=== PATIENT | female | born 1975 | race Caucasian/White ===

== ENCOUNTER → 2016-09-04 | Outpatient (CLI) | payer BC ==
[~2016-09-04] MED LIST: ESTR0.3T PO; IBUP200C14 PO
--- NOTE | 2016-09-04 16:56 | MAMMOGRAPHY REPORT ---
BILATERAL DIGITAL DIAGNOSTIC MAMMOGRAM TOMOSYNTHESIS WITH CAD AND TARGETED BILATERAL ULTRASOUND: 08/18 CLINICAL HISTORY: 41-year-old woman with a family history of breast cancer = mother in her 30s and m aternal grandmother in her 60s presents with palpable lumps in each breast. She has a history of pr evious bilateral benign surgical excisional biopsies in the breasts. TECHNIQUE: Bilateral breast tomosynthesis in addition to standard 2D mammography was performed. Curr ent study was also evaluated with a Computer Aided Detection (CAD) system. COMPARISON: Comparison is made to exams dated: 04/24/2007 and 04/24/2007. BREAST COMPOSITION: There are scattered areas of fibroglandular density in both breasts. FINDINGS: No suspicious mass, architectural distortion or cluster of microcalcifications is seen bi laterally. Targeted ultrasound was performed throughout the right breast and left breast with particular attent ion to the areas of pain and lumps pointed out by the patient. The patient reports a broad area of tenderness and lumps in the lateral and superior right breast and throughout the superior left breas t. There is a bilobed nearly anechoic cystic appearing mass in the 10:00 right breast, 5 cm from th e nipple, measuring 3.6 x 2.1 x 2.3 mm. An oval hypoechoic solid versus cystic mass in the adjacent right 10:00 breast, 5 cm from the nipple measures 2.6 x 2.1 x 4.1 mm. A lobulated predominantly an echoic cystic appearing mass is seen in the 11:00 right breast, 4 cm from the nipple measuring 4.4 x 2.7 x 5.3 mm. The patient reported focal pain while ultrasounding over this cyst. In the 9:00 rig ht breast, 4 cm from the nipple, there is a microlobulated hypoechoic solid versus cystic, taller th an wide mass measuring 5.0 x 2.6 x 2.8 mm. This is indeterminate given the orientation and microlob ulated margins and definitive characterization with ultrasound guided core biopsy is recommended. Within the left 1:00 breast, 3 cm from the nipple, there is an oval parallel circumscribed anechoic benign cyst measuring 4.2 x 2.7 x 5.9 mm. A smaller anechoic cyst measuring 1.8 mm is identified in the retroareolar left breast. No other discrete solid or cystic mass is seen. IMPRESSION: ACR BI-RADS CATEGORY 4B: INTERMEDIATE SUSPICION FOR MALIGNANCY, TARGETED ULTRASOUND ACR BI-RADS CATEGORY 4B: INTERMEDIATE SUSPICION FOR MALIGNANCY 1. Ultrasound guided core needle biopsy is recommended for an indeterminate microlobulated hypoecho ic 5 mm mass in the 9:00 right breast. Pending pathology results, other benign appearing solid and cystic masses within the right breast can be followed in 6 months. 2. The patient reported focal pain while scanning over several cysts in the breasts, which may be c ontribute into the patient's symptoms. However, clinical correlation is also recommended. These results and recommendations were discussed with the patient at the time of the exam. She tent atively scheduled the biopsy prior to leaving our department. Approximately 10% of breast cancers are not detected with mammography. A negative mammographic repor t should not delay biopsy if a clinically suggestive mass is present. Ana Avila M.D. ay/:09/04/2016 15:37:17 Meat Boner And Slicer: Hermelinda Mays RT(R)(Wu), [facility] letter sent: Abnormal 4/5 BI-RADS Code: ACR BI-RADS Category 4B: Intermediate Suspicion For Malignancy Ultrasound BI-RADS: AC R BI-RADS Category 4B: Intermediate Suspicion For Malignancy
== END | disposition home or self-care (01) ==
LOC: C.MAMM 13:20
PROVIDERS: ATTEND Obstetrics & Gynecology
DX: N63 Unspecified lump in breast (principal); N64.4 Mastodynia

== ENCOUNTER → 2016-09-13 | Outpatient (CLI) | payer BC ==
--- NOTE | 2016-09-13 11:37 | Discharge Instructions ---
Discharge Instructions Procedure Procedure Date: Sep 13, 2016. Reason for visit: Right Mass. Discharge Discharge Date: Sep 13, 2016. Discharge Diagnosis: status post breast biopsy Instructions Activity Recommendations: Additional Limitations (see below) Return to School/Work: no limitations Recommended Home Diet: No Limitations Provider Instructions: ACTIVITY RECOMMENDATIONS: * No lifting, pushing, pulling or exercising the affected side for three days. RETURN TO SCHOOL/WORK: * You may return to work/school after the procedure, but do not perform any strenuous activities for 24 to 48 hours. MEDICATIONS: * Tylenol (two 325 mg) every four to six hours if needed for mild pain (if not allergic to Tylenol). DIET: * Resume previous diet. SPECIAL CARE INSTRUCTIONS: * Keep biopsy site dry for 24 hours. May shower after 24 hours, but do not soak (bathe) incision. * May remove Tegaderm (plastic patch) tomorrow AFTER showering. * Leave the steri-strips on for one week. Allow the steri-strips to fall off by themselves. If not off after one week, you may remove them. You may place a Bandaid crosswise over the strips, if desired. * Apply ice 10 minutes on and 10 minutes off as needed. * Wear a bra at bedtime to sleep more comfortably for 2-3 days. * Your referring physician should have the results after approximately 5 to 7 business days. * Call for unusual bleeding, fever, drainage, etc or if you have any questions call during normal business hours or after hours call Dr Aguilar, [phone]. FOLLOW UP VISIT: Follow-up with Referring Physician as scheduled. Allergies Coded Allergies: Hydrocodone (Verified Allergy, Mild, `, 02/01/16) Darion Sellers Recommendations: Call your doctor if: * Temperature above 101 degrees * Pain not relieved by pain medicine ordered * There is increased drainage or redness from any incision * You have any unanswered questions or concerns. Your Doctors Instructions noted above were prepared by provider Leisa Aguilar. Patient Signature Section: Patient Instructions Signature Page Krista Arenas Patient (or Guardian) Signature/Date: I have read and understand the instructions given to me by my caregivers. Caregiver/RN/Doctor Signature/Date: The above-named patient and/or guardian has received patient instructions on this date. + Original Patient Signature Page (only) stays with chart. Please make copy for patient.
--- NOTE | 2016-09-13 12:25 | MAMMOGRAPHY REPORT ---
THIS REPORT HAS BEEN AMENDED. ULTRASOUND GUIDED BIOPSY RIGHT BREAST: 09/13/2016 CLINICAL HISTORY: Right 9:00 breast mass. PATIENT CONSENT: The procedure, risks and benefits were discussed with the patient and informed writ ten consent was obtained. A timeout was performed immediately prior to the procedure. PROCEDURE DESCRIPTION: With ultrasound guidance, aseptic technique, and lidocaine as the local anest hetic (1% lidocaine to anesthetize the skin and 1% lidocaine with epinephrine to anesthetize the james per tissues), the mass of concern in the right 9:00 breast was sampled 3 times with a 14-gauge Achie ve biopsy needle. Immediately thereafter, with ultrasound guidance, aseptic technique, and lidocai ne as the local anesthetic, a metallic localizer clip was placed at the biopsy site. Direct pressur e was applied to the site immediately post procedure and hemostasis was achieved. Postprocedure uni lateral mammograms were performed to confirm placement of the clip in the expected location of the b reast mass. The patient tolerated the procedure without complication. She was given wound care inst ructions. The specimens were sent to pathology for analysis. COMPARISON: Comparison is made to exams dated: 09/04/2016 ultrasound and 09/04/2016 mammogram - [facility]. IMPRESSION: ULTRASOUND GUIDED BIOPSY Ultrasound-guided core needle biopsy of the right 9:00 breast mass, with clip placement. The patien t will receive pathology results from her referring physician. Pending benign pathology results, ot her benign-appearing masses in the right breast can be followed in 6 months. Leisa Aguilar M.D. ah/:09/13/2016 11:43:24 Photo Intern: Geno RANGEL)(Wu), [facility] AMENDMENT: 09/18/2016 Leisa Aguilar M.D. The pathology from ultrasound-guided biopsy of the right 9 o'clock breast mass was reviewed on 017. The pathology shows fibrocystic change and mild nonspecific chronic inflammation and stromal m yxoid change, which is concordant with the imaging appearance. Recommend follow-up diagnostic mammo grams and ultrasound of the right breast in 6 months to reevaluate the other right breast masses.
--- NOTE | 2016-09-13 12:26 | MAMMOGRAPHY REPORT ---
UNILATERAL RIGHT DIGITAL DIAGNOSTIC MAMMOGRAM: 09/13/2016 CLINICAL HISTORY: Status post ultrasound-guided biopsy of the right 9:00 breast mass. TECHNIQUE: Postprocedural right CC and ML views were obtained. COMPARISON: Comparison is made to exams dated: 09/04/2016 ultrasound and 09/04/2016 mammogram - [facility]. BREAST COMPOSITION: There are scattered areas of fibroglandular density in the right breast. FINDINGS: A new ribbon-shaped biopsy marker clip is seen in the expected location of the biopsied r ight 9:00 breast mass. No significant postbiopsy hematoma is seen. IMPRESSION: POST PROCEDURE IMAGING FOR MARKER PLACEMENT New biopsy marker clip status post ultrasound guided biopsy of the right 9:00 breast mass. Patholog y results are pending. Approximately 10% of breast cancers are not detected with mammography. A negative mammographic repor t should not delay biopsy if a clinically suggestive mass is present. Leisa Aguilar M.D. ah/:09/13/2016 11:49:20 Fitter Placer: Geno Barrera RT(R)(M), [facility] BI-RADS Code: Post Procedure Imaging For Marker Placement
== END | disposition home or self-care (01) ==
LOC: C.MAMM 10:40
PROVIDERS: ATTEND Obstetrics & Gynecology
DX: N63 Unspecified lump in breast (principal)

== ENCOUNTER 2017-02-17 07:11 | Emergency (ER) | payer BC, OTHER ==
[~2017-02-17] VITALS: Ht 154.9 cm; Wt 62.4 kg
[2017-02-17 07:15] VITALS: TEMP 36.7; Ht 154.9 cm; Wt 62.4 kg
[2017-02-17] MEDS ORDERED: IBUPROFEN 600 MG TAB PO STA (07:30)
--- NOTE | 2017-02-17 07:47 | DIAGNOSTIC IMAGING REPORT ---
LEFT KNEE 3 VIEWS CLINICAL HISTORY: LEFT WITH SUNRISE, TWISTING INJURY trauma. Pain. COMPARISON: None. DISCUSSION: The bones and joint spaces appear intact. There is no evidence of fracture, dislocation or bony disease. There is no evidence for soft tissue swelling. IMPRESSION: Negative study. Electronically signed by: Lv Estrada M.D. 02/17/2017 7:46 AM Dictated Date/Time: 02/17/2017 7:45 AM
--- NOTE | 2017-02-17 08:16 | EMERGENCY ROOM VISIT NOTE ---
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 She states that she was pushing a mop, when her left knee slipped, and she twisted. She complains primarily of pain and swelling in the popliteal aspect of the knee. She states the injury occurred about an hour ago. Initially she was able to walk and bear weight, but then sat for a short period of time, and found she had difficulty getting up and bearing weight after being seated. She did not take any medication nor applied any ice to the knee. There is no prior history of injuries to this knee. She was sent here by her employer. She rates her pain a 4/10. REVIEW OF SYSTEMS: Review of systems as per HPI. All other systems reviewed were negative. At least 6 systems reviewed. PMH: Electronic medical records are reviewed and summarized as above/below. See Problem List. SOCIAL HISTORY: Patient lives at home with her boyfriend. Positive tobacco and alcohol use. PHYSICAL EXAM: Vital Signs: Reviewed Nurse's notes. MENTAL STATUS: Well- appearing 41-year-old white female who is awake and alert and in no acute distress. KNEE: Examination of the left knee show the skin to be intact, no erythema, ecchymosis or outward signs of trauma noted. She has some fullness in the popliteal space, and slight joint effusion is palpable. There is no peripatellar tenderness or crepitus. She is tenderness globally over the knee, both over the medial and the lateral joint line. No pain over the patellar ligament on the quadriceps tendon. She has discomfort with range of motion, she can extend fully and flex to roughly 90. There is no gross ligamentous instability to both varus and valgus at 0 or 30, and to anterior drawer and Jacqueline's. 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 EMERGENCY DEPARTMENT COURSE: Ice pack was applied, patient was medicated with ibuprofen. X-rays of the right knee were obtained and negative for acute bony abnormality. She was wrapped with an Timo wrap, fitted with a knee immobilizer and issued crutches. Possibility of a ligamentous or meniscal injury was discussed with the patient, and she was advised that she would require further care and evaluation either with occupational health or with orthopedics as arranged by her employer. She rated her pain a 5/10 at discharge. Medication reconciliation: I attest that I have personally reviewed the patient' s current medication list. Blood pressure screening : Patient was found to have normal blood pressure on screening and does not require follow-up. LEFT KNEE 3 VIEWS CLINICAL HISTORY: LEFT WITH SUNRISE, TWISTING INJURY trauma. Pain. COMPARISON: None. DISCUSSION: The bones and joint spaces appear intact. There is no evidence of fracture, dislocation or bony disease. There is no evidence for soft tissue swelling. IMPRESSION: Negative study. Problem List Surgical Problems: (1) History of appendectomy Status: Resolved (2) History of hysterectomy Status: Resolved Current/Historical Medications Scheduled Estrogens, Conjugated (Premarin), MG PO DAILY Allergies Coded Allergies: Hydrocodone (Verified Allergy, Mild, `, 02/17/17) Vital Signs Date Time Temp Pulse Resp B/P (MAP) Pulse Ox O2 Delivery O2 Flow Rate FiO2 02/17/17 08:24 92 124/78 97 02/17/17 07:15 36.7 104 18 120/75 98 Room Air Medications Administered Medications (Trade) Dose Ordered Sig/Mary Route Start Time Stop Time Status Last Admin Dose Admin Ibuprofen (Motrin Tab) 600 mg NOW STAT PO 02/17/17 07:30 02/17/17 07:31 DC 02/17/17 07:35 600 MG Departure Information Impression Primary Impression: Left knee injury Additional Impression: Work related injury Referrals No Doctor, Assigned (PCP) Patient Instructions [facility] Additional Instructions Ibuprofen(Motrin, Advil) may be used for fever or pain. Use 600mg every six hours as needed. Take with food. Avoid using more than 2400mg in a 24 hour period. Do not use 2400mg per day for more than three consecutive days without physician direction. Prolonged inappropriate use can lead to stomach upset or ulcers. This medication can be taken if you need to drive, work, or perform activities which may be dangerous when taking narcotic pain medication. (AND/OR) Acetaminophen(Tylenol) may be used for fever or pain. Use 1000mg every six hours as needed. Avoid using more than 3000mg in a 24 hour period. This medication can be taken if you need to drive, work, or perform activities which may be dangerous when taking narcotic pain medication. Ice compresses for 20 minutes at a time four times daily for 2-3 days. Use the knee immobilizer and crutches as instructed. Rest and elevate your injury. Continue current medications. Return to the ER immediately for any numbness, tingling, severe pain, extreme swelling in the extremity or as needed. Follow up with [facility] or orthopedics as arranged by your employer. Problem Qualifiers Primary Impression: Left knee injury Encounter type: initial encounter Qualified Codes: S89.92XA - Unspecified injury of left lower leg, initial encounter
[2017-02-17 08:24] VITALS: BP 124/78; PULSE 92; O2SAT 97
== END 2017-02-17 08:25 | disposition home or self-care (01) ==
LOC: C.EDB 07:12
DX: S89.92XA Unspecified injury of left lower leg, initial encounter (principal); X50.9XXA Other and unspecified overexertion or strenuous movements or postures, initial encounter; F17.200 Nicotine dependence, unspecified, uncomplicated; Y99.0 Civilian activity done for income or pay

== ENCOUNTER → 2017-03-14 | Outpatient (CLI) | payer BC ==
[~2017-03-14] MED LIST changes: -IBUP200C14 PO
--- NOTE | 2017-03-14 12:57 | MAMMOGRAPHY REPORT ---
UNILATERAL RIGHT DIGITAL DIAGNOSTIC MAMMOGRAM TOMOSYNTHESIS WITH CAD AND TARGETED RIGHT ULTRASOUND: CLINICAL HISTORY: Recent ultrasound-guided core needle biopsy of a right 9:00 breast mass August, which yielded benign pathology including fibrocystic changes. The patient presents for short inte rval follow-up of other right breast masses seen on ultrasound. TECHNIQUE: Breast tomosynthesis in addition to standard 2D mammography was performed. Current study was also evaluated with a Computer Aided Detection (CAD) system. Right CC and MLO 2-D and tomosynthe sis images were obtained. COMPARISON: Comparison is made to exams dated: 09/13/2016 mammogram, 09/13/2016 ultrasound biopsy, 08/18 ultrasound, 09/04/2016 mammogram - [facility], 04/24/2007, and 04/24/2007. BREAST COMPOSITION: The tissue of the right breast is heterogeneously dense, which may obscure small masses. FINDINGS: There has been no significant interval change mammographically compared to prior exams. T here are no suspicious masses, calcifications, or areas of architectural distortion noted in the righ t breast. A biopsy marker clip is again noted in the right upper outer quadrant from benign ultrasou nd-guided biopsy. Targeted ultrasound was performed of the areas of the previously seen right breast masses. In the ri ght breast at 10:00, 5 cm from the nipple again noted is a round circumscribed anechoic mass which me asures 2 x 2 mm, not significantly changed compared to the August 2016 exam and consistent with a be nign cyst. Adjacent to this is an oval nearly anechoic circumscribed 4 x 3 x 2 mm mass, also unchang ed and consistent with a benign cyst. In the right breast at 11:00, 4 cm from the nipple, there is a n anechoic circumscribed mass with a thin internal septation measuring 5 x 3 x 3 mm, also unchanged a nd consistent with a benign cyst. A biopsy marker clip from benign ultrasound guided biopsy is noted in the right breast at 9:00, 4 cm from the nipple. The biopsied mass is stable to less prominent af ter biopsy, and yielded benign pathology. No suspicious masses are evident. IMPRESSION: ACR BI-RADS CATEGORY 2: BENIGN, TARGETED ULTRASOUND ACR BI-RADS CATEGORY 2: BENIGN Small masses in the right 9 to 11:00 breast on ultrasound are stable compared to the August 2016 exa m, and are benign and compatible with cysts. There is no mammographic or targeted sonographic eviden ce of malignancy. Return to annual mammogram screening schedule is recommended, due August 2017. Th e patient has been verbally notified of the results. Approximately 10% of breast cancers are not detected with mammography. A negative mammographic report should not delay biopsy if a clinically suggestive mass is present. Leisa Aguilar M.D. ah/:03/14/2017 10:36:48 Chucking Machine Set Up Operator: Shilo Cotto RT(R)(M), [facility] letter sent: Normal 1/2 BI-RADS Code: ACR BI-RADS Category 2: Benign Ultrasound BI-RADS: ACR BI-RADS Category 2: Benign
== END | disposition home or self-care (01) ==
LOC: C.MAMM 09:40
PROVIDERS: ATTEND Obstetrics & Gynecology
DX: Z09 Encounter for follow-up examination after completed treatment for conditions other than malignant neoplasm (principal); N63 Unspecified lump in breast

== ENCOUNTER 2023-11-12 22:11 | Inpatient (IN) ==
--- NOTE | 2023-11-12 22:30 | Emergency Department Note ---
History of Present Illness General Chief complaint: Flank Pain Stated complaint: SEVERE RT FLANK/BACK PAIN Time Seen by Provider: 11/12/23 22:22 History of Present Illness Maximum Pain Intensity: 10 This 48-year-old female with a history of appendectomy presents the ER complaining of right flank right upper abdominal pain for the past day. Nothing makes it better or worse. No rash. Patient denies chest pain, dyspnea, fever, chills, flulike illness, trauma to the area. Home Medications Medication Instructions Recorded Confirmed Type ibuprofen 200 mg tablet (Advil) 400 mg PO QID PRN Pain 10/27/18 03/18/23 History klxtnezk-[id number]-sqhw 8 mg-folic 2 tab PO HS 10/27/18 03/18/23 History ac 400 mcg-vit K 10 mcg chew tablet (Centrum Chewables) hydroxyzine HCl 10 mg tablet 10 mg PO Q6H PRN Anxiety 03/10/23 03/18/23 History nicotine 21 mg/24 hr daily 1 patch transdermal DAILY 03/10/23 03/18/23 History transdermal patch pantoprazole 40 mg tablet,delayed 40 mg PO QAM 03/10/23 03/18/23 History release oxycodone-acetaminophen 5 mg-325 1 tab PO Q6H PRN pain #14 tabs 03/18/23 Rx mg tablet (Percocet) Allergies Allergy/AdvReac Type Severity Reaction Status Date / Time hydrocodone Allergy Mild ITCHING Verified 03/18/23 08:56 Past Med/Surg History Medical History GERD (gastroesophageal reflux disease) Hyperlipidemia Endometriosis Anxiety Surgical History H/O total hysterectomy H/O oophorectomy S/P laparoscopy excis uterine surg endometriotic tissue posterior S/P laparoscopy gynecologic laparoscopy with adhesiolysis H/O colonoscopy History of cryosurgery cervix H/O breast biopsy S/P appendectomy Family History Mother Breast cancer, Onset Age: 32 Renal failure Grandmother (Maternal) Breast cancer, Onset Age: 60 Other Coronary heart disease Hypertension No family history of adverse response to anesthesia Denies family history of Ovarian cancer Colorectal cancer Social History Smoking Status: Never smoker Cigarettes Per Day: currently in process of quitting - using nicotine patch; Second Hand Exposure: No; Do You Dip or Chew Tobacco: No; Hx Alcohol Use: Yes Hx Substance Use: No Preferred Language: Citizen Of [place] Communication Ability: Effective Sports Internship Required: No Beliefs That Will Affect Care: None marital status: Single Current Living Situation: Family and Significant Other current occupational status: employed Feels Safe at Home: Yes Assistive Devices: Contacts and Glasses Review of Systems A total of 10 systems reviewed and were otherwise negative Physical Exam Vital Signs Vital Signs - 24 hr 11/12/23 22:15 11/12/23 23:33 11/12/23 23:34 Temperature 36.2 C L Temperature Source Temporal Artery Scan Pulse Rate 105 H 78 81 Pulse Rate from SpO2 Sensor Respiratory Rate 18 19 Respiratory Effort / Characteristics Non-Labored Spontaneous Respiratory Depth Normal Respiratory Pattern Regular Blood Pressure 143/66 H Blood Pressure Mean 91 Blood Pressure Position Sitting Pulse Oximetry 96 93 Oxygen Delivery Method Room Air Sepsis Recent Fever Within 48 Hours No Sepsis New/Unexplained Change in Mental Status N/A Sepsis Action Taken by Nursing No Action Required 11/13/23 00:00 11/13/23 00:56 11/13/23 01:00 Temperature Temperature Source Pulse Rate 71 80 Pulse Rate from SpO2 Sensor 83 Respiratory Rate 18 24 Respiratory Effort / Characteristics Respiratory Depth Respiratory Pattern Blood Pressure 122/61 118/71 Blood Pressure Mean 81 86 Blood Pressure Position Pulse Oximetry 99 96 94 Oxygen Delivery Method Sepsis Recent Fever Within 48 Hours Sepsis New/Unexplained Change in Mental Status Sepsis Action Taken by Nursing 11/13/23 01:00 Temperature Temperature Source Pulse Rate Pulse Rate from SpO2 Sensor Respiratory Rate Respiratory Effort / Characteristics Respiratory Depth Respiratory Pattern Blood Pressure 118/71 Blood Pressure Mean 81 Blood Pressure Position Pulse Oximetry Oxygen Delivery Method Sepsis Recent Fever Within 48 Hours Sepsis New/Unexplained Change in Mental Status Sepsis Action Taken by Nursing VITALS: Vitals are noted on the nurse's note and reviewed by myself. Vital signs stable. GENERAL: Pleasant female, in no acute distress, nondiaphoretic, well-developed well-nourished. SKIN: Capillary reflex less than 2 seconds. HEENT: Normocephalic. PERRLA. EOMI. Nares patent. Mucous membranes moist. Neck is supple without nuchal rigidity. HEART: Regular rate and rhythm LUNGS: Clear to auscultation bilaterally without wheezes, rales or rhonchi. No retractions or accessory muscle use. ABDOMEN: Positive bowel sounds x 4. Normal tympanic percussion. Soft, tender right upper quadrant, right CVA tenderness, without masses or organomegaly. No guarding or rebound tenderness. no left CVA tenderness MUSCULOSKELETAL: No gross musculoskeletal defects. NEURO: Patient was alert and oriented to person place and time. No focal neurological deficits. Course Administered Medications Fentanyl Citrate (Fentanyl Citrate Pf 100 Mcg/2 Ml Vial) 50 mcg IV Q15M PRN PRN Reason: Pain Stop: 11/26/23 22:26 Last Admin: 11/13/23 00:58 Dose: 50 mcg Documented By: Admin: 11/13/23 00:01 Dose: 50 mcg Documented By: Admin: 11/12/23 22:51 Dose: 50 mcg Documented By: OCTAVIO Discontinued Medications Sodium Chloride (Nss) 1,000 mls @ 999 mls/hr IV .Q1H1M STA Stop: 11/12/23 23:27 Last Infusion: 11/13/23 00:05 Dose: Infused Documented By: Admin: 11/12/23 22:51 Dose: 999 mls/hr Documented By: OCTAVIO Ondansetron HCl (Ondansetron Inj 2 Mg/Ml 2 Ml Vial) 4 mg IV NOW STA Stop: 11/12/23 22:28 Last Admin: 11/12/23 22:51 Dose: 4 mg Documented By: OCTAVIO Medical Decision Making Medical Records Attestation: I reviewed the patient's medical records. Home Medications Current Medication List: was personally reviewed by me Laboratory Data Attestation: I reviewed the patient's lab results. 11/12/23 22:35 11/12/23 22:35 Lab Results 11/12/23 Range/Units 22:35 WBC 9.33 (4.8-10.8) K/ul RBC 4.75 (4.20-5.40) M/uL Hgb 14.1 (12.0-16.0) g/dl Hct 41.4 (37.0-47.0) % MCV 87.2 (80.0-100.0) fL MCH 29.7 (25.0-34.0) pg MCHC 34.1 (32.0-36.0) g/dL RDW Std Deviation 39.9 (36.4-46.3) fL RDW Coeff of Brianna 12.4 (11.5-14.5) % Plt Count 225 (130-400) K/uL MPV 11.5 (9.4-12.4) fL Immature Gran % (Auto) 0.2 % Neut % (Auto) 59.7 % Lymph % (Auto) 27.4 % Daniels % (Auto) 9.6 % Eos % (Auto) 2.3 % Baso % (Auto) 0.8 % Neut # (Auto) 5.57 (1.40-6.50) K/uL Lymph # (Auto) 2.56 (1.20-3.40) K/uL Daniels # (Auto) 0.90 H (0.11-0.59) K/uL Eos # (Auto) 0.21 (0.00-0.50) K/uL Baso # (Auto) 0.07 (0.00-0.20) K/uL Immature Gran # (Auto) 0.02 (0.01-0.20) K/uL Sodium 138 (136-145) mmol/L Potassium 3.9 (3.5-5.1) mmol/L Chloride 106 (98-107) mmol/L Carbon Dioxide 27 (21-32) mmol/L Anion Gap 5 (3-11) BUN 15 (6-23) mg/dl Creatinine 0.99 (0.6-1.2) mg/dl Est Cr Clr Drug Dosing 63.4 ml/min Est GFR ( Amer) 79.2 ml/min Est GFR (Non-Af Amer) 68.3 ml/min BUN/Creatinine Ratio 15.2 (10-20) Glucose 99 (70-99(Fasting)) mg/dl Calcium 9.5 (8.6-10.3) mg/dl Total Bilirubin 0.4 (0.2-1.0) mg/dl AST 17 (13-39) U/L ALT 13 (7-52) U/L Alkaline Phosphatase 67 (34-104) U/L Total Protein 6.7 (6.0-8.3) gm/dl Albumin 4.2 (3.4-5.0) gm/dl Globulin 2.5 (2.5-4.0) gm/dl Albumin/Globulin Ratio 1.7 (0.9-2) Lipase 49 (11-82) U/L HCG, Qual Negative (Negative) Urine Color Yellow Urine Appearance Cloudy A (Clear) Urine pH 6.0 (4.5-7.5) Ur Specific [place] 1.010 (1.000-1.030) Urine Protein Negative (Negative) Urine Glucose (UA) Negative (Negative) Urine Ketones Negative (Negative) Urine Blood Negative (Negative) Urine Nitrite Negative (Negative) Urine Bilirubin Negative (Negative) Urine Urobilinogen Negative (Negative) Ur Leukocyte Esterase Negative (Negative) Urine WBC (Auto) 1-5 (0-5) /hpf Urine RBC (Auto) 0-4 (0-4) /hpf U Hyaline Cast (Auto) 0 (0-5) /lpf U Epithel Cells (Auto) 20-30 H (0-5) /lpf Urine Bacteria (Auto) Negative (Negative) Imaging Data Attestation: I personally reviewed and interpreted this imaging study as follows: Radiologist's Impression: Abdomen/Pelvis CT 11/12/23 22:27 Exam(s): CT ABDOMEN + PELVIS Without Contrast EXAM: CT Abdomen and Pelvis Without Intravenous Contrast CLINICAL HISTORY: Reason for exam: right flank pain. TECHNIQUE: Axial computed tomography images of the abdomen and pelvis without intravenous contrast. CTDI is 17.5 mGy and DLP is 804.42 mGy-cm. Automated exposure control was utilized for the study. A dose lowering technique was utilized adhering to the principles of ALARA. COMPARISON: No relevant prior studies available. FINDINGS: Lung bases: Unremarkable. No mass. No consolidation. ABDOMEN: Liver: Hepatic low-attenuation lesion in the right hepatic lobe measures 9 x 7 mm, too small to characterize. Gallbladder and bile ducts: Contracted gallbladder, which is limited in evaluation. No calcified stones. No ductal dilation. Pancreas: Unremarkable. No ductal dilation. Spleen: Unremarkable. No splenomegaly. Adrenals: Unremarkable. No mass. Kidneys and ureters: No hydronephrosis or nephrolithiasis. No obstructive uropathy. Note, there are phleboliths along the course of the right ureter. No hydronephrosis or nephrolithiasis. Stomach and bowel: Diverticulosis, without acute diverticulitis. No bowel obstruction. No free air. PELVIS: Appendix: No findings to suggest acute appendicitis. Bladder: Unremarkable. No stones. Reproductive: Unremarkable as visualized. ABDOMEN and PELVIS: Intraperitoneal space: See above. Bones/joints: No acute fracture. No dislocation. Soft tissues: Unremarkable. Vasculature: Unremarkable. No abdominal aortic aneurysm. Lymph nodes: Unremarkable. No enlarged lymph nodes. IMPRESSION: 1. No hydronephrosis or nephrolithiasis. No obstructive uropathy. Note, there are phleboliths along the course of the right ureter. No right-sided perinephric stranding. 2. Diverticulosis, without acute diverticulitis. No bowel obstruction. No free air. Electronically signed by: Enoc Aguilera MD 11/12/23 23:20 PM Gallbladder Ultrasound 11/12/23 22:27 Exam(s): US GALLBLADDER EXAM: US Abdomen Limited, Gallbladder CLINICAL HISTORY: Reason for exam: ruq pain. TECHNIQUE: Real-time ultrasound of the right upper quadrant with image documentation. COMPARISON: No relevant prior studies available. FINDINGS: Liver: Indeterminate right hepatic lesion measures 2.4 x 2.4 cm in dimension blood flow. Recommend nonemergent contrast-enhanced MRI correlation (hepatic mass protocol). Small hepatic cystic lesion measures 6 x 6 mm. Gallbladder: Mild wall thickening of the gallbladder. No gallstones. Common bile duct: The common bile duct measures 5 mm. No stones. No dilation. IMPRESSION: Indeterminate right hepatic lesion measures 2.4 x 2.4 cm in dimension blood flow. Recommend nonemergent contrast-enhanced MRI correlation (hepatic mass protocol). Electronically signed by: Enoc Aguilera MD 11/13/23 01:19 AM MDM Narrative Prior records/ancillary studies reviewed. Triage Nursing notes reviewed. Additional history obtained from nursing. The patient's history was concerning for abdominal pain. Differential diagnosis: Etiologies such as appendicitis, diverticulitis, PUD, biliary pathology, UTI, pancreatitis, obstruction, mesenteric ischemia, aortic pathology, infections, inflammatory bowel disease, renal colic, as well as others were entertained. Physical examination findings: As above. ER treatment provided: An order was placed for continuous cardiac monitoring. The monitor shows a rate of 60-100 with a sinus rhythm per my Independent interpretation. Fentanyl, Zofran, IV fluids were ordered On reassessment the patient felt better. Diagnostics interpreted by me: The labs Independently Interpreted by myself revealed no worrisome leukocytosis, normal LFTs Imaging studies: Ultrasound and CT as above Consultation: A consultation was placed with the hospitalist. The case was discussed and diagnostics were reviewed. The patient was evaluated in the ER for further treatment. Exam and history seem consistent with new liver lesions with ongoing upper abdominal pain. Medicine was consulted and case was discussed. She will be admitted for further evaluation and workup. Medicine will order the liver MRI. Patient is agreeable. By the evaluation outlined above emergent etiologies such as appendicitis, diverticulitis, PUD, biliary pathology, UTI, pancreatitis, obstruction, mesenteric ischemia, aortic pathology, infections, inflammatory bowel disease, renal colic, as well as others were deemed relatively unlikely. The pt informed about the findings as listed above. All questions were answered and pleased with the treatment. The chart was completed utilizing [employer] Speech voice recognition software. Grammatical errors, random word insertions, pronoun errors, and incomplete sentences are an occassional consequence of this system due to software limitations, ambient noise, and hardware issues. Any formal questions or concerns about the content, text, or information contained within the body of this dictation should be directly addressed to the physician cardiovascular physician assistant for clarification. Impression & Plan Lesion of liver, Abdominal pain Discharge Plan Visit Data Chief Complaint: Flank Pain Stated Complaint: SEVERE RT FLANK/BACK PAIN ED Provider: [facility] ED Midlevel Provider: Janice Garcia Discharge Problem: Lesion of liver, Abdominal pain Patient Disposition: Being Evaluated by Hospitalist Condition: Good Forms Stand Alone Forms: [facility] [place] Prescriptions Prescriptions: No Action ibuprofen [Advil] 200 mg Tablet 400 mg PO QID PRN (Reason: Pain) Centrum Chewables 8 mg-400 mcg- 10 mcg Tablet,Chewable 2 tab PO HS pantoprazole 40 mg Tablet,Delayed Release (Dr/Ec) 40 mg PO QAM hydroxyzine HCl 10 mg Tablet 10 mg PO Q6H PRN (Reason: Anxiety) nicotine 21 mg/24 hr Patch 24 Hour 1 patch TRANSDERMAL DAILY oxycodone-acetaminophen [Percocet] 5-325 mg tablet 1 tab PO Q6H PRN (Reason: pain) Qty: 14 0RF Referrals Referrals: PCP,NO [Primary Care Provider] -
[2023-11-12] MEDS: ONDANSETRON INJ 2 MG/ML 2 ML VIAL IV STA (22:51)
[2023-11-12] MEDS: fentaNYL citrate PF 100 MCG/2 ML VIAL IV PRN (22:51)
[2023-11-12] MEDS: SODIUM CHLORIDE 0.9% 1,000 ML IV STA (22:51)
[2023-11-12 23:01] LABS: Basophils # (auto) 0.07 K/uL (0.00-0.20); Basophils % (auto) 0.8 %; Eosinophils # (auto) 0.21 K/uL (0.00-0.50); Eosinophils % (auto) 2.3 %; Hematocrit (blood only) 41.4 % (37.0-47.0); Hemoglobin 14.1 g/dl (12.0-16.0); Immature Granulocytes # (auto) 0.02 K/uL (0.01-0.20); Immature Granulocytes % (auto) 0.2 %; Lymphocytes # (auto) 2.56 K/uL (1.20-3.40); Lymphocytes % (auto) 27.4 %; Mean Corpuscular Hemoglobin 29.7 pg (25.0-34.0); Mean Corpuscular Hgb Conc 34.1 g/dL (32.0-36.0); Mean Corpuscular Volume 87.2 fL (80.0-100.0); Mean Platelet Volume 11.5 fL (9.4-12.4); Monocytes % (auto) 9.6 %; Neutrophils # (auto) 5.57 K/uL (1.40-6.50); Neutrophils % (auto) 59.7 %; Platelet Count 225 K/uL (130-400); RDW Coefficient of Variation 12.4 % (11.5-14.5); RDW Standard Deviation 39.9 fL (36.4-46.3); Red Blood Count 4.75 M/uL (4.20-5.40); White Blood Count 9.33 K/ul (4.8-10.8)
[2023-11-12 23:02] LABS: Appearance Urine Cloudy (Clear); Bacteria Urine Automated Negative (Negative); Bilirubin Urine Negative (Negative); Blood Urine Negative (Negative); Cast Urine Automated 0 /lpf (0-5); Color Urine Yellow; Epithelial Cell Urine Auto 20-30 /lpf (0-5); Glucose Urine UA Negative (Negative); Ketones Urine Negative (Negative); Leukocyte Esterase Urine Negative (Negative); Nitrite Urine Negative (Negative); Protein Urine Negative (Negative); RBC Urine Automated 0-4 /hpf (0-4); Urobilinogen Urine Negative (Negative)
[2023-11-12 23:18] LABS: Albumin Globulin Ratio 1.7 (0.9-2); Albumin Level 4.2 gm/dl (3.4-5.0); BUN Creatinine Ratio 15.2 (10-20); Bilirubin,Total 0.4 mg/dl (0.2-1.0); Calcium 9.5 mg/dl (8.6-10.3); Creatinine Clr Calc Pharmacy 63.4 ml/min; Est GFR (African American) 79.2 ml/min; Est GFR (Non-African American) 68.3 ml/min; Globulin 2.5 gm/dl (2.5-4.0); Potassium 3.9 mmol/L (3.5-5.1); Total Protein 6.7 gm/dl (6.0-8.3)
[2023-11-12 23:20] LABS: Pregnancy Test, Serum Negative (Negative)
--- NOTE | 2023-11-12 23:22 | CT Scan Report ---
Exam(s): CT ABDOMEN + PELVIS Without Contrast EXAM: CT Abdomen and Pelvis Without Intravenous Contrast CLINICAL HISTORY: Reason for exam: right flank pain. TECHNIQUE: Axial computed tomography images of the abdomen and pelvis without intravenous contrast. CTDI is 17.5 mGy and DLP is 804.42 mGy-cm. Automated exposure control was utilized for the study. A dose lowering technique was utilized adhering to the principles of ALARA. COMPARISON: No relevant prior studies available. FINDINGS: Lung bases: Unremarkable. No mass. No consolidation. ABDOMEN: Liver: Hepatic low-attenuation lesion in the right hepatic lobe measures 9 x 7 mm, too small to characterize. Gallbladder and bile ducts: Contracted gallbladder, which is limited in evaluation. No calcified stones. No ductal dilation. Pancreas: Unremarkable. No ductal dilation. Spleen: Unremarkable. No splenomegaly. Adrenals: Unremarkable. No mass. Kidneys and ureters: No hydronephrosis or nephrolithiasis. No obstructive uropathy. Note, there are phleboliths along the course of the right ureter. No hydronephrosis or nephrolithiasis. Stomach and bowel: Diverticulosis, without acute diverticulitis. No bowel obstruction. No free air. PELVIS: Appendix: No findings to suggest acute appendicitis. Bladder: Unremarkable. No stones. Reproductive: Unremarkable as visualized. ABDOMEN and PELVIS: Intraperitoneal space: See above. Bones/joints: No acute fracture. No dislocation. Soft tissues: Unremarkable. Vasculature: Unremarkable. No abdominal aortic aneurysm. Lymph nodes: Unremarkable. No enlarged lymph nodes. IMPRESSION: 1. No hydronephrosis or nephrolithiasis. No obstructive uropathy. Note, there are phleboliths along the course of the right ureter. No right-sided perinephric stranding. 2. Diverticulosis, without acute diverticulitis. No bowel obstruction. No free air. Electronically signed by: Enoc Aguilera MD 11/12/23 23:20 PM
--- NOTE | 2023-11-13 01:19 | Ultrasound Report ---
Exam(s): US GALLBLADDER EXAM: US Abdomen Limited, Gallbladder CLINICAL HISTORY: Reason for exam: ruq pain. TECHNIQUE: Real-time ultrasound of the right upper quadrant with image documentation. COMPARISON: No relevant prior studies available. FINDINGS: Liver: Indeterminate right hepatic lesion measures 2.4 x 2.4 cm in dimension blood flow. Recommend nonemergent contrast-enhanced MRI correlation (hepatic mass protocol). Small hepatic cystic lesion measures 6 x 6 mm. Gallbladder: Mild wall thickening of the gallbladder. No gallstones. Common bile duct: The common bile duct measures 5 mm. No stones. No dilation. IMPRESSION: Indeterminate right hepatic lesion measures 2.4 x 2.4 cm in dimension blood flow. Recommend nonemergent contrast-enhanced MRI correlation (hepatic mass protocol). Electronically signed by: Enoc Aguilera MD 11/13/23 01:19 AM
[2023-11-13] MEDS: fentaNYL citrate PF 100 MCG/2 ML VIAL IV STA (01:34)
[2023-11-13] MEDS: HYDROmorphone INJ 0.5 MG/0.5 ML SYR IV PRN (04:35)
--- NOTE | 2023-11-13 05:02 | History & Physical Report ---
Date of Service November 13, 2023 Assessment & Plan (1) Abdominal pain: Plan: 48-year-old female with past med significant for allergic rhinitis, irritable bowel syndrome, history of headaches, general anxiety disorder, tobacco use disorder, depression presents with right-sided abdominal pain going on for 3 to 4 days. The pain was getting severe so she came to the ER. Has Some nausea. Denies any diarrhea or constipation. No blood in the stools ,normal mictu rition. No fevers. No chest pain or shortness of breath. No headache. No blurred visions ,no runny nose or sore throat. Hemodynamics are okay. Gallbladder ultrasound shows right hepatic lesions Abdominal pain right-sided Gallbladder ultrasound shows right hepatic lesions 2.4 x 2.[address] abdomen pelvis without contrast shows right hepatic lesion 9 x 7 mm and diverticulosis We will keep her n.p.o., IV fluids, IV Dilaudid as needed, IV Zofran as needed GI consult in a.m. for further recommendations GERD Continue Protonix DVT prophylaxis SCDs for now Disposition Medical floor Full code History of Present Illness Chief Complaint: Right-sided abdominal pain Primary Care Provider: NO PCP 48-year-old female with past med significant for allergic rhinitis, irritable bowel syndrome, history of headaches, general anxiety disorder, tobacco use disorder, depression presents with right-sided abdominal pain going on for 3 to 4 days. The pain was getting severe so she came to the ER. Has Some nausea. Denies any diarrhea or constipation. No blood in the stools ,normal micturition. No fevers. No chest pain or shortness of breath. No headache. No blurred visions ,no runny nose or sore throat. Hemodynamics are okay. Past medical history. As mentioned above Past surgical history. Bilateral breast lumpectomies. Ligation oviducts. Appendectomy. Total abdominal hysterectomy with removal of tubes Social history. Smokes 0.2 packs a day for last 17 years. Alcohol rarely. No drug use. Family history. Mother had breast cancer. Allergies Allergy/AdvReac Type Severity Reaction Status Date / Time hydrocodone Allergy Mild ITCHING Verified 03/18/23 08:56 Home Medications Medication Instructions Recorded Confirmed Type ibuprofen 200 mg tablet (Advil) 400 mg PO QID PRN Pain 10/27/18 11/13/23 History ltinezus-uqgtfucj-yqrp 8 mg-folic 2 tab PO HS 10/27/18 11/13/23 History ac 400 mcg-vit K 10 mcg chew tablet (Centrum Chewables) hydroxyzine HCl 10 mg tablet 10 mg PO Q6H PRN Anxiety 03/10/23 11/13/23 History pantoprazole 40 mg tablet,delayed 40 mg PO QAM 03/10/23 11/13/23 History release Past Med/Surg History Medical History GERD (gastroesophageal reflux disease) Hyperlipidemia Endometriosis Anxiety Surgical History H/O total hysterectomy H/O oophorectomy S/P laparoscopy excis uterine surg endometriotic tissue posterior S/P laparoscopy gynecologic laparoscopy with adhesiolysis H/O colonoscopy History of cryosurgery cervix H/O breast biopsy S/P appendectomy Family History Mother Breast cancer, Onset Age: 32 Renal failure Grandmother (Maternal) Breast cancer, Onset Age: 60 Other Coronary heart disease Hypertension No family history of adverse response to anesthesia Denies family history of Ovarian cancer Colorectal cancer Social History Smoking Status: Never smoker Cigarettes Per Day: currently in process of quitting - using nicotine patch; Second Hand Exposure: No; Do You Dip or Chew Tobacco: No; Hx Alcohol Use: Yes Hx Substance Use: No Preferred Language: Fijian Communication Ability: Effective Foreign Student Adviser Required: No Beliefs That Will Affect Care: None marital status: Single Current Living Situation: Family and Significant Other current occupational status: employed Feels Safe at Home: Yes Assistive Devices: Contacts and Glasses Review of Systems Review of Systems: All systems reviewed & are unremarkable except as noted in HPI & below Physical Exam Physical Exam: General- Not in distress Head- atraumatic Eyes- PERRL. ENT- oropharynx clear Neck- supple, no JVD. Lungs- clear to auscultation no wheezing or crackles. Heart- regular rhythm; no murmur, no gallop. Abdomen- normal bowel sounds, soft, tenderness in RUQ and guarding present, No distension seen. Extremities- no pretibial edema, no erythema Neuro- alert, oriented PERRL, no facial palsy; no dysarthria; moves extremities. Results & Data Results & Data Vital Signs (Past 12 Hours) Vital Signs Temp Pulse Resp BP Pulse Ox O2 Del Method 11/13/23 03:30 75 15 104/80 98 11/13/23 03:00 73 13 116/74 97 11/13/23 02:30 76 15 111/79 98 11/13/23 02:00 93 H 27 H 104/65 96 11/13/23 01:30 81 14 121/80 96 11/13/23 01:00 118/71 11/13/23 01:00 80 24 118/71 94 11/13/23 00:56 122/61 96 11/13/23 00:00 71 18 99 11/12/23 23:34 81 11/12/23 23:33 78 19 93 11/12/23 22:15 36.2 C L 105 H 18 143/66 H 96 Room Air Diagnostic Findings Laboratory Results WBC 9.33 K/ul (4.8-10.8) 11/12/23 22:35 RBC 4.75 M/uL (4.20-5.40) 11/12/23 22:35 Hgb 14.1 g/dl (12.0-16.0) 11/12/23 22:35 Hct 41.4 % (37.0-47.0) 11/12/23 22:35 MCV 87.2 fL (80.0-100.0) 11/12/23 22:35 MCH 29.7 pg (25.0-34.0) 11/12/23 22:35 MCHC 34.1 g/dL (32.0-36.0) 11/12/23 22:35 RDW Std Deviation 39.9 fL (36.4-46.3) 11/12/23 22:35 RDW Coeff of Brianna 12.4 % (11.5-14.5) 11/12/23 22:35 Plt Count 225 K/uL (130-400) 11/12/23 22:35 MPV 11.5 fL (9.4-12.4) 11/12/23 22:35 Immature Gran % (Auto) 0.2 % 11/12/23 22:35 Neut % (Auto) 59.7 % 11/12/23 22:35 Lymph % (Auto) 27.4 % 11/12/23 22:35 [place] % (Auto) 9.6 % 11/12/23 22:35 Eos % (Auto) 2.3 % 11/12/23 22:35 Baso % (Auto) 0.8 % 11/12/23 22:35 Neut # (Auto) 5.57 K/uL (1.40-6.50) 11/12/23 22:35 Lymph # (Auto) 2.56 K/uL (1.20-3.40) 11/12/23 22:35 [place] # (Auto) 0.90 K/uL (0.11-0.59) H 11/12/23 22:35 Eos # (Auto) 0.21 K/uL (0.00-0.50) 11/12/23 22:35 Baso # (Auto) 0.07 K/uL (0.00-0.20) 11/12/23 22:35 Immature Gran # (Auto) 0.02 K/uL (0.01-0.20) 11/12/23 22:35 Sodium 138 mmol/L (136-145) 11/12/23 22:35 Potassium 3.9 mmol/L (3.5-5.1) 11/12/23 22:35 Chloride 106 mmol/L (98-107) 11/12/23 22:35 Carbon Dioxide 27 mmol/L (21-32) 11/12/23 22:35 Anion Gap 5 (3-11) 11/12/23 22:35 BUN 15 mg/dl (6-23) 11/12/23 22:35 Creatinine 0.99 mg/dl (0.6-1.2) 11/12/23 22:35 Est Cr Clr Drug Dosing 63.4 ml/min 11/12/23 22:35 Est GFR ( Amer) 79.2 ml/min 11/12/23 22:35 Est GFR (Non-Af Amer) 68.3 ml/min 11/12/23 22:35 BUN/Creatinine Ratio 15.2 (10-20) 11/12/23 22:35 Glucose 99 mg/dl (70-99(Fasting)) 11/12/23 22:35 Calcium 9.5 mg/dl (8.6-10.3) 11/12/23 22:35 Total Bilirubin 0.4 mg/dl (0.2-1.0) 11/12/23 22:35 AST 17 U/L (13-39) 11/12/23 22:35 ALT 13 U/L (7-52) 11/12/23 22:35 Alkaline Phosphatase 67 U/L (34-104) 11/12/23 22: Total Protein 6.7 gm/dl (6.0-8.3) 11/12/23 22:35 Albumin 4.2 gm/dl (3.4-5.0) 11/12/23 22: Globulin 2.5 gm/dl (2.5-4.0) 11/12/23 22: Albumin/Globulin Ratio 1.7 (0.9-2) 11/12/23 22: Lipase 49 U/L (11-82) 11/12/23 22:35 HCG, Qual Negative (Negative) 11/12/23 22:35 Urine Color Yellow 11/12/23 22:35 Urine Appearance Cloudy (Clear) A 11/12/23 22:35 Urine pH 6.0 (4.5-7.5) 11/12/23 22:35 Ur Specific [place] 1.010 (1.000-1.030) 11/12/23 22:35 Urine Protein Negative (Negative) 11/12/23 22:35 Urine Glucose (UA) Negative (Negative) 11/12/23 22:35 Urine Ketones Negative (Negative) 11/12/23 22:35 Urine Blood Negative (Negative) 11/12/23 22:35 Urine Nitrite Negative (Negative) 11/12/23 22:35 Urine Bilirubin Negative (Negative) 11/12/23 22:35 Urine Urobilinogen Negative (Negative) 11/12/23 22:35 Ur Leukocyte Esterase Negative (Negative) 11/12/23 22:35 Urine WBC (Auto) 1-5 /hpf (0-5) 11/12/23 22:35 Urine RBC (Auto) 0-4 /hpf (0-4) 11/12/23 22:35 U Hyaline Cast (Auto) 0 /lpf (0-5) 11/12/23 22:35 U Epithel Cells (Auto) 20-30 /lpf (0-5) H 11/12/23 22:35 Urine Bacteria (Auto) Negative (Negative) 11/12/23 22:35 Impressions Abdomen/Pelvis CT 11/12/23 22:27 Exam(s): CT ABDOMEN + PELVIS Without Contrast EXAM: CT Abdomen and Pelvis Without Intravenous Contrast CLINICAL HISTORY: Reason for exam: right flank pain. TECHNIQUE: Axial computed tomography images of the abdomen and pelvis without intravenous contrast. CTDI is 17.5 mGy and DLP is 804.42 mGy-cm. Automated exposure control was utilized for the study. A dose lowering technique was utilized adhering to the principles of ALARA. COMPARISON: No relevant prior studies available. FINDINGS: Lung bases: Unremarkable. No mass. No consolidation. ABDOMEN: Liver: Hepatic low-attenuation lesion in the right hepatic lobe measures 9 x 7 mm, too small to characterize. Gallbladder and bile ducts: Contracted gallbladder, which is limited in evaluation. No calcified stones. No ductal dilation. Pancreas: Unremarkable. No ductal dilation. Spleen: Unremarkable. No splenomegaly. Adrenals: Unremarkable. No mass. Kidneys and ureters: No hydronephrosis or nephrolithiasis. No obstructive uropathy. Note, there are phleboliths along the course of the right ureter. No hydronephrosis or nephrolithiasis. Stomach and bowel: Diverticulosis, without acute diverticulitis. No bowel obstruction. No free air. PELVIS: Appendix: No findings to suggest acute appendicitis. Bladder: Unremarkable. No stones. Reproductive: Unremarkable as visualized. ABDOMEN and PELVIS: Intraperitoneal space: See above. Bones/joints: No acute fracture. No dislocation. Soft tissues: Unremarkable. Vasculature: Unremarkable. No abdominal aortic aneurysm. Lymph nodes: Unremarkable. No enlarged lymph nodes. IMPRESSION: 1. No hydronephrosis or nephrolithiasis. No obstructive uropathy. Note, there are phleboliths along the course of the right ureter. No right-sided perinephric stranding. 2. Diverticulosis, without acute diverticulitis. No bowel obstruction. No free air. Electronically signed by: Enoc Aguilera MD 11/12/23 23:20 PM Gallbladder Ultrasound 11/12/23 22:27 Exam(s): US GALLBLADDER EXAM: US Abdomen Limited, Gallbladder CLINICAL HISTORY: Reason for exam: ruq pain. TECHNIQUE: Real-time ultrasound of the right upper quadrant with image documentation. COMPARISON: No relevant prior studies available. FINDINGS: Liver: Indeterminate right hepatic lesion measures 2.4 x 2.4 cm in dimension blood flow. Recommend nonemergent contrast-enhanced MRI correlation (hepatic mass protocol). Small hepatic cystic lesion measures 6 x 6 mm. Gallbladder: Mild wall thickening of the gallbladder. No gallstones. Common bile duct: The common bile duct measures 5 mm. No stones. No dilation. IMPRESSION: Indeterminate right hepatic lesion measures 2.4 x 2.4 cm in dimension blood flow. Recommend nonemergent contrast-enhanced MRI correlation (hepatic mass protocol). Electronically signed by: Enoc Aguilera MD 11/13/23 01:19 AM Code Status & VTE Plan VTE Prophylaxis Plan VTE Prophylaxis will be ordered: Yes
[2023-11-13] MEDS: KETOROLAC TROMETHAMINE 15 MG/ML VIAL IV ONE (06:36)
[2023-11-13 10:03] LABS: Basophils # (auto) 0.07 K/uL (0.00-0.20); Basophils % (auto) 0.8 %; Eosinophils # (auto) 0.16 K/uL (0.00-0.50); Eosinophils % (auto) 1.9 %; Hematocrit (blood only) 38.9 % (37.0-47.0); Hemoglobin 13.4 g/dl (12.0-16.0); Immature Granulocytes # (auto) 0.02 K/uL (0.01-0.20); Immature Granulocytes % (auto) 0.2 %; Lymphocytes # (auto) 2.06 K/uL (1.20-3.40); Lymphocytes % (auto) 24.3 %; Mean Corpuscular Hemoglobin 29.5 pg (25.0-34.0); Mean Corpuscular Hgb Conc 34.4 g/dL (32.0-36.0); Mean Corpuscular Volume 85.5 fL (80.0-100.0); Mean Platelet Volume 11.4 fL (9.4-12.4); Monocytes # (auto) 0.98 K/uL (0.11-0.59); Monocytes % (auto) 11.5 %; Neutrophils % (auto) 61.3 %; Platelet Count 215 K/uL (130-400); RDW Coefficient of Variation 12.5 % (11.5-14.5); Red Blood Count 4.55 M/uL (4.20-5.40); White Blood Count 8.49 K/ul (4.8-10.8)
[2023-11-13 10:26] LABS: Albumin Level 3.9 gm/dl (3.4-5.0); BUN Creatinine Ratio 17.1 (10-20); Bilirubin Direct 0.1 mg/dl (0-0.2); Bilirubin,Total 0.6 mg/dl (0.2-1.0); Calcium 8.9 mg/dl (8.6-10.3); Creatinine Clr Calc Pharmacy 76.5 ml/min; Est GFR (African American) 99.5 ml/min; Est GFR (Non-African American) 85.8 ml/min; Total Protein 6.4 gm/dl (6.0-8.3)
[2023-11-13] MEDS: PANTOprazole 40 MG TAB PO SCH (10:48)
[2023-11-13] MEDS: hydrOXYzine HCl 10 MG TAB PO PRN (10:48)
[2023-11-13] MEDS: D5W AND NSS 1,000 ML IV SCH (10:52)
--- NOTE | 2023-11-13 12:07 | Gastrointestinal Consultation ---
Date of Consultation November 13, 2023 Assessment & Plan (1) RUQ abdominal pain: Plan EGD this afternoon by Dr. Flores. MRI liver. Keep NPO. Further recommendations to follow these procedures. Supervising Physician Co-Signing Physician Notes Pt with constant right flank pain aggravated by position and unrelated to PO, no assoc n/v. + NSAID use. + Carnett's sign on exam in right abd. EGD with esophageal submucosal lesion, antral gastritis likely related to NSAID use. Imaging shows 2 cm liver lesion, MRI shows hemangioma. Suspect pain is musculoskeletal. Oral PPI, NSAID avoidance for gastritis. Outpt EUS for esophageal submucosal lesion. No f/u needed hemangioma. History of Present Illness Reason for Consultation: right sided abdominal pain. hepatic lesions Requesting Physician: Dr. Herrera Attending Physician: Vahid Zamora MD History of Present Illness Ms. Krista Arenas is a 48 yr old female w/o a local PCP w a hx of HLD, endometriosis, multiple abd procedures including appendectomy, oophorectomy, gynecologic lap w lysis of adhesions who presented to the ED today. She tells me that her pain is right sided of the lower chest and upper abdomen and that it began about a week ago, at that time feeling like a pulled muscles, a constant ache and intermittent severe sharp pains. Pain is caused by turning/twisting motions. She also has burning across the upper abdomen. She doesn't believe that either of these pains are associated with or changed by eating. She has been passing one formed BM/day, most recently yesterday. She hasn't slept well for days because of the pain. 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 On arrival, non contrast CT w/o stones; RUQ US with mild GB wall thickening, no stones. LFTs and lipase are normal. Allergies Allergy/AdvReac Type Severity Reaction Status Date / Time hydrocodone Allergy Mild ITCHING Verified 03/18/23 08:56 Home Medications Medication Instructions Recorded Confirmed Type ibuprofen 200 mg tablet (Advil) 400 mg PO QID PRN Pain 10/27/18 11/13/23 History reiwcktk-ygnpgaqj-eyoj 8 mg-folic 2 tab PO HS 10/27/18 11/13/23 History ac 400 mcg-vit K 10 mcg chew tablet (Centrum Chewables) hydroxyzine HCl 10 mg tablet 10 mg PO Q6H PRN Anxiety 03/10/23 11/13/23 History pantoprazole 40 mg tablet,delayed 40 mg PO QAM 03/10/23 11/13/23 History release Patient History Medical History GERD (gastroesophageal reflux disease) Hyperlipidemia Endometriosis Anxiety Surgical History H/O total hysterectomy H/O oophorectomy S/P laparoscopy excis uterine surg endometriotic tissue posterior S/P laparoscopy gynecologic laparoscopy with adhesiolysis H/O colonoscopy History of cryosurgery cervix H/O breast biopsy S/P appendectomy Family History Mother Breast cancer, Onset Age: 32 Renal failure Grandmother (Maternal) Breast cancer, Onset Age: 60 Other Coronary heart disease Hypertension No family history of adverse response to anesthesia Denies family history of Ovarian cancer Colorectal cancer Social History Smoking Status: Current every day smoker Tobacco Type: Cigarettes Cigarettes Per Day: 7; Second Hand Exposure: No; Do You Dip or Chew Tobacco: No; Hx Alcohol Use: Yes Hx Substance Use: No Preferred Language: Eritrean Communication Ability: Effective Customer Agent Required: No Beliefs That Will Affect Care: None marital status: Single Current Living Situation: Family current occupational status: employed Other Information That Helps Us Care for You: No Feels Safe at Home: Yes Safety Concerns: Feels Safe At This Time Assistive Devices: None Review of Systems 2 Review of Systems: ROS: Gen: Denies weakness, fevers, weight loss Eyes: No eye redness, or pain, no recent vision changes Resp: No SOB, no cough Cardio: No palpitations/irregular beats, no chest pain GI: As per HPI, otherwise (-) : Denies pain on urination Skin: No jaundice, itching or new rashes M/S: as per HPI, otherwise (-); no red/swollen joints. Physical Exam 2 Constitutional: Appears anxious, uncomfortable. Is AAO, no confusion. Eyes: PERRL, conjunctivae normal, anicteric sclerae ENMT: external ear and nose normal, oropharynx normal Neck: trachea midline, no thyromegaly Respiratory: normal respiratory effort, lungs clear to auscultation Cardiovascular: RRR, no murmur, no edema Gastrointestinal (Abdomen): Very tender on palpation of the right lower ribs on the axillary line as well as very tender in the RUQ of the abdomen. No palpable masses. Abd is soft, non distended. BS hypoactive, but present. Skin: no rashes, warm and dry Neurologic: PERRL, EOMI, accommodation nl, no face palsy, no dysarthria Psychiatric: AAO, uncomfortable and anxious. Lymphatic: no cervical or axillary lymphadenopathy Results & Data Vital Signs (Past 12 Hours) Vital Signs Temp Pulse Pulse Resp BP BP Pulse Ox 11/13/23 09:36 36.5 C 72 20 111/73 95 11/13/23 07:43 69 11/13/23 05:30 71 12 112/75 98 11/13/23 05:00 82 15 116/86 97 11/13/23 04:00 81 15 125/77 98 11/13/23 03:30 75 15 104/80 98 11/13/23 03:00 73 13 116/74 97 11/13/23 02:30 76 15 111/79 98 11/13/23 02:00 93 H 27 H 104/65 96 11/13/23 01:30 81 14 121/80 96 11/13/23 01:00 118/71 11/13/23 01:00 80 24 118/71 94 11/13/23 00:56 122/61 96 O2 Del Method 11/13/23 09:36 Room Air 11/13/23 07:43 11/13/23 05:30 11/13/23 05:00 11/13/23 04:00 11/13/23 03:30 11/13/23 03:00 11/13/23 02:30 11/13/23 02:00 11/13/23 01:30 11/13/23 01:00 11/13/23 01:00 11/13/23 00:56 Laboratory Results 11/13/23 09:43 11/13/23 09:43 Diagnostic Findings RUQ US 11/12/23: Indeterminate right hepatic lesion measures 2.4 x 2.4 cm in dimension blood flow. Recommend nonemergent contrast-enhanced MRI correlation (hepatic mass protocol). non contrast CTAP 11/12/23: 1. No hydronephrosis or nephrolithiasis. No obstructive uropathy. Note, there are phleboliths along the course of the right ureter. No right-sided perinephric stranding. 2. Diverticulosis, without acute diverticulitis. No bowel obstruction. No free air.
--- NOTE | 2023-11-13 12:28 | Electrocardiogram Report ---
Test Reason : Blood Pressure : / mmHG Vent. Rate : 076 BPM Atrial Rate : 076 BPM P-R Int : 146 ms QRS Dur : 078 ms QT Int : 392 ms P-R-T Axes : 045 041 045 degrees QTc Int : 441 ms Normal sinus rhythm Normal ECG When compared with ECG of 27-OCT-2018 10:49, No significant change was found Confirmed by Des De Guzman ([id number]) on 11/13/2023 12:27:49 PM Referred By: REFERRED SELF Confirmed By:Des De Guzman
--- OUTSIDE RECORDS SUMMARY | 2023-11-13 13:07 | External Medical Summary | Summary of Care ---
Author Name Unknown Organization [facility] Address [address] [place] [address] Phone [phone] Care Team Providers Care Engineering Writer Name Role Phone Anil Varghese DO Primary Care Provider Reason for Visit * Reason Onset Date Comments Advice 03/04/2023 Encounter Details Date Type Department Care Team Description 03/04/2023 Telephone Family Practice [facility] [address] [place] [id number] Anil Varghese DO [address] [place] [id number] Advice Allergies Active Allergy Reactions Severity Noted Date Comments Other Allergy (See Comments) Rash High 05/01/2015 Opiate pain med - but unsure of name documented as of this encounter (statuses as of 06/03/2023) Medications Medication Sig Dispensed Refills Start Date End Date Status hydrOXYzine HCl 10 MG Oral Tablet (Atarax)Indicati ons:Generalized anxiety disorder Take 1 Tablet by mouth every 6 hours as needed for Anxiety. 90 Tablet 1 11/15/2022 Active Nicotine 21 MG/24HR Transdermal Patch 24 Hour (Nicoderm CQ) Place 1 Patch over 24 hours topically on the skin daily. 28 Patch 1 02/06/2023 Active Pantoprazole Sodium 40 MG Oral Tablet Delayed Release (Protonix)Indica tions:Epigastric pain Take 1 Tablet by mouth in the morning. 30 minutes before the first meal of the day. Do not crush, split or chew the tablet. 90 Tablet 3 02/28/2023 Active Nicotine Polacrilex 4 MG Mouth/Throat Gum (Nicorette)Indic ations:Tobacco use Take 1 Each by mouth as needed (nicotine craving every 2 hours as needed max 24 pieces/day). 100 Each 2 03/05/2023 Active estradiol (ESTRACE) 1 MG Tablet 0 10/28/2018 3 Discontinued(Med ication List Clean Up) ondansetron (ZOFRAN) 4 MG TabletIndication s:Generalized anxiety disorder Take 1 Tab by mouth every 6 hours as needed for Nausea. 30 Tab 5 12/02/2018 3 Discontinued(Med ication List Clean Up) busPIRone (BUSPAR) 10 MG TabletIndication s:Generalized anxiety disorder Take 1 Tab by mouth 2 times a day. 60 Tab 0 12/23/2018 3 Discontinued(Med ication List Clean Up) Meloxicam 15 MG TabletIndication s:Chronic heel pain, left Take 1 Tab by mouth daily. for pain. 30 Tab 1 03/20/2020 3 Discontinued(Med ication List Clean Up) Nicotine Polacrilex 4 MG Mouth/Throat Gum (Nicorette)Indic ations:Tobacco use Take 1 Each by mouth as needed (nicotine craving). 100 Each 2 02/28/2023 3 Discontinued documented as of this encounter (statuses as of 06/03/2023) Active Problems Problem Noted Date Moderate episode of recurrent major depr essive disorder 03/20/2020 Lactose intolerance 10/03/2011 IBS (irritable bowel syndrome) 2 Menopause 10/03/2011 Headache 07/04/2011 Overview: ICD-10 update of inactive term ADVANCE DIRECTIVE INFORMATION 08/27/2005 Overview: No, Advance Directive brochure given to patient. Allergic rhinitis 03/31/2001 Tobacco use disorder 03/31/2001 GENERALIZED ANXIETY DIS 03/24/2000 documented as of this encounter (statuses as of 06/03/2023) Resolved Problems Problem Noted Date Resolved Date CONTRACEPT PILL SURVEILL 03/24/2000 012 documented as of this encounter (statuses as of 06/03/2023) Immunizations Name Administration Dates Next Due Pneumococcal Polysaccharide PPV23 (Pneumovax) Seasonal Influenza, Split, IIV3, With Preserve, Inj 06/03/2011,08/04/2006 TDAP (age 10 and older)(Boostrix) 12/02/2018 12/02/2028 documented as of this encounter Social History Tobacco Use Types Packs/Day Years Used Date Smoking Tobacco: Every Day Cigarettes 0.2 17 Smokeless Tobacco: Never Comments:pt smokes 3-4 cigar ettes a day; started age 22 Alcohol Use Standard Drinks/Week Comments Yes 0 (1 standard drink = 0.6 oz pur e alcohol) rarely Food Insecurity Answer Date Recorded Within the past 12 months, y ou worried that your food would run out before you got money to buy more. Never true 02/04/2023 Within the past 12 months, t he food you bought just didn't last and you didn't have money to get more. Never true 02/04/2023 Sex Assigned at Date Recorded Female 02/04/2023 9:48 AM E DT Job Start Date Occupation Industry Not on file Not on file Not on file documented as of this encounter Miscellaneous Notes * Telephone Encounter - HORTENCIA Read - 03/05/2023 4:13 PM EDT Max 24 pieces/day, updated Rx * Telephone Encounter - OTILIO Howard - 03/04/2023 9:04 AM EDT Spoke to pharmacy voiced that nicotine gum needs to say "up to how many a day" for insurance purposes, please advise, thanks documented in this encounter Plan of Treatment Health Maintenance Due Date Last Done Comments Hepatitis B (1 of 3 - 3-dose series) 1977 Pneumococcal Vaccine: Pediatrics (0 to 5 Years) and At-Risk Patients (6 to 64 Years) (2 - PCV) 06/03/2012 06/03/2011 Mammogram 2017 Depression Screening 03/20/2021 03/20/2020 Cologuard 2022 Colonoscopy 2022 Colorectal Cancer Screening 2022 Fecal Occult Blood Test 2022 Sigmoidoscopy 2022 COVID-19 Vaccine (3 - 2022-2 4 season) 2023 10/16/2020, 09/18/2020 Influenza Vaccine (FLU shot) (#1) 2023 06/03/2011, 08/04/2006 Diabetes Screening 02/05/2026 02/05/2023, 02/05/2023, 03/09/2014 Lipid Panel 02/06/2028 02/05/2023 DTaP,Tdap,and Td Vaccines (2 - Td or Tdap) 12/02/2028 12/02/2018 GARDASIL-HPV IMMUNIZATION SERIES Aged Out No longer eligible based on patient's age to complete this topic HIV Screening Discontinued Hepatitis C Screening Discontinued MENINGOCOCCAL (MENACTRA/MENVEO) Aged Out No longer eligible based on patient's age to complete this topic documented as of this encounter Medical Devices Not on filedocumented as of this encounter Visit Diagnoses Diagnosis Tobacco use Tobacco use disorder documented in this encounter Care Teams Engineering Writer Relationship Specialty Start Date End Date Anil Varghese, [address] [place] [id number] PCP - General Family Medicine 12/02/18 documented as of this encounter
--- OUTSIDE RECORDS SUMMARY | 2023-11-13 13:07 | External Medical Summary | Summary of Care ---
Author Name Unknown Organization [facility] Address [address] [address] Phone [phone] Care Team Providers Care Welding Tester Name Role Phone Aide Varghese DO Primary Care Provider Reason for Visit * Reason Onset Date Comments Medication Refill 06/23/2023 Encounter Details Date Type Department Care Team (Late st Contact Info) Description 06/23/2023 Refill Family [facility] [address] [place] [id number] Aide Varghese DO [address] [place] [address] GENERALIZED ANXIETY DIS Allergies Active Allergy Reactions Criticality Noted Date Comments Other Allergy (See Comments) Rash High 05/01/2015 Opiate pain med - but unsure of name documented as of this encounter (statuses as of 06/23/2023) Medications Medication Sig Dispensed Refills Start Date End Date Status Nicotine 21 MG/24HR Transdermal Patch 24 Hour (Nicoderm CQ) Place 1 Patch over 24 hours topically on the skin daily. 28 Patch 1 02/06/2023 Active Pantoprazole Sodium 40 MG Oral Tablet Delayed Release (Protonix)Indicat ions:Epigastric pain Take 1 Tablet by mouth in the morning. 30 minutes before the first meal of the day. Do not crush, split or chew the tablet. 90 Tablet 3 02/28/2023 Active Nicotine Polacrilex 4 MG Mouth/Throat Gum (Nicorette)Indica tions:Tobacco use Take 1 Each by mouth as needed (nicotine craving every 2 hours as needed max 24 pieces/day). 100 Each 2 03/05/2023 Active hydrOXYzine HCl 10 MG Oral Tablet (Atarax)Indicatio ns:Generalized anxiety disorder Take 1 Tablet by mouth every 6 hours as needed for Anxiety. 90 Tablet 1 06/23/2023 Active hydrOXYzine HCl 10 MG Oral Tablet (Atarax)Indicatio ns:Generalized anxiety disorder Take 1 Tablet by mouth every 6 hours as needed for Anxiety. 90 Tablet 1 11/15/2022 06/23/2023 Discontinued (Refill) documented as of this encounter (statuses as of 06/23/2023) Active Problems Problem Noted Date Diagnosed Date Moderate episode of recurrent major depressive d isorder 03/20/2020 Lactose intolerance 10/03/2011 IBS (irritable bowel syndrome) 10/03/2011 Menopause 10/03/2011 Headache 07/04/2011 Overview: ICD-10 update of inactive term ADVANCE DIRECTIVE INFORMATION 08/27/2005 Overview: No, Advance Directive brochure given to patient. Allergic rhinitis 03/31/2001 Tobacco use disorder 03/31/2001 GENERALIZED ANXIETY DIS 03/24/2000 documented as of this encounter (statuses as of 06/23/2023) Resolved Problems Problem Noted Date Diagnosed Date Resolved Date CONTRACEPT PILL SURVEILL 03/24/2000 documented as of this encounter (statuses as of 06/23/2023) Immunizations Name Administration Dates Next Due Pneumococcal [...] = 0.6 oz pur e alcohol) rarely PHQ-2 Answer Date Recorded PHQ-2 Score -1 05/08/2020 Hunger Vital Sign Answer Date Recorded Within the past 12 months, y ou worried that your food would run out before you got the money to buy more. Never true 02/05/20 23 Within the past 12 months, t he food you bought just didn't last and you didn't have money to get more. Never true 02/04/2023 Sex and Gender Information Value Date Recorded Sex Assigned at Female 02/04/2023 9:48 AM EDT Gender Identity Female 02/04/2023 9:48 AM EDT Sexual Orientation Straight 02/04/2023 9: 48 AM EDT Job Start Date Occupation Industry Not on file Not on file Not on file documented as of this encounter Miscellaneous Notes * Telephone Encounter - Aide Varghese DO - 06/23/2023 8:08 PM EST Signed Prescriptions: Disp Refills hydrOXYzine HCl 10 MG Oral Tablet (Atarax) 90 Tab*1 Sig: Take 1 Tablet by mouth every 6 hours as needed for Anxiety. Authorizing Provider: AIDE VARGHESE * Telephone Encounter - Ivette Hunt CPhT - 06/23/2023 1:02 PM EST Did you pend patient's preferred pharmacy and medication before forwarding?yes Pharmacy: [facility] [facility] [place] Pending Prescriptions: Disp Refills hydrOXYzine HCl 10 MG Oral Tablet (Atarax)90 Tab*1 Sig: Take 1 Tablet by mouth every 6 hours as needed for Anxiety. Last Visit: 04/28/2023 (in office), Visit date not found (telemedicine) Next Visit: Visit date not found If no future appointments scheduled, and last appointment is greater than a year ago, please schedule patient for a follow-up appointment Last date the medication was ordered: [id number] Is this request for a controlled substance?No Urine Drug Screen:No results found for this or any previous visit. Patient Phone Numbers Labs: Lab Results Component Value Date/Time CREAT 0.8 02/05/2023 09:24 AM CREAT 0.6 03/09/2014 11:56 AM POTASSIUM 4.1 02/05/2023 09:24 AM POTASSIUM 4.3 03/09/2014 11:56 AM TSH 1.88 03/09/2014 11:56 AM LDLCALC 156 (H) 02/05/2023 09:24 AM ALT 14 03/09/2014 11:56 AM HGBA1C 5.6 02/05/2023 09:24 AM documented in this encounter Plan of Treatment [...] as of this encounter Visit Diagnoses Diagnosis GENERALIZED ANXIETY DIS Generalized anxiety disorder documented in this encounter Care Teams Welding Tester Relationship Specialty Start Date End Date Aide Varghese DO [address] [place] [address] PCP - General Family Medicine 12/02/18 documented as of this encounter
--- NOTE | 2023-11-13 14:07 | History & Physical Report ---
Date of Service November 13, 2023 Assessment & Plan Admission and Anticipated Discharge Date Admission Date: November 13, 2023 History of Present Illness Primary Care Provider: NO PCP Right sided abd pain CV: RRR Resp:CTA Abd: soft A/p: EGD Allergies Allergy/AdvReac Type Severity Reaction Status Date / Time hydrocodone Allergy Mild ITCHING Verified 03/18/23 08:56 Home Medications Medication Instructions Recorded Confirmed Type ibuprofen 200 mg tablet (Advil) 400 mg PO QID PRN Pain 10/27/18 11/13/23 History uedtlryw-[id number]-[id number] 8 mg-folic 2 tab PO HS 10/27/18 11/13/23 History ac 400 mcg-vit K 10 mcg chew tablet (Centrum Chewables) hydroxyzine HCl 10 mg tablet 10 mg PO Q6H PRN Anxiety 03/10/23 11/13/23 History pantoprazole 40 mg tablet,delayed 40 mg PO QAM 03/10/23 11/13/23 History release Past Med/Surg History Medical History GERD (gastroesophageal reflux disease) Hyperlipidemia Endometriosis Anxiety Surgical History H/O total hysterectomy H/O oophorectomy S/P laparoscopy excis uterine surg endometriotic tissue posterior S/P laparoscopy gynecologic laparoscopy with adhesiolysis H/O colonoscopy History of cryosurgery cervix H/O breast biopsy S/P appendectomy Family History Mother Breast cancer, Onset Age: 32 Renal failure Grandmother (Maternal) Breast cancer, Onset Age: 60 Other Coronary heart disease Hypertension No family history of adverse response to anesthesia Denies family history of Ovarian cancer Colorectal cancer Social History Smoking Status: Current every day smoker Tobacco Type: Cigarettes Cigarettes Per Day: 7; Second Hand Exposure: No; Do You Dip or Chew Tobacco: No; Hx Alcohol Use: Yes Hx Substance Use: No Preferred Language: Bulgarian Communication Ability: Effective Bods Developer Required: No Beliefs That Will Affect Care: None marital status: Single Current Living Situation: Family current occupational status: employed Other Information That Helps Us Care for You: No Feels Safe at Home: Yes Safety Concerns: Feels Safe At This Time Assistive Devices: None Results & Data Results & Data Vital Signs (Past 12 Hours) Vital Signs Temp Pulse Pulse Resp BP BP Pulse Ox 11/13/23 13:34 36.6 C 69 16 137/72 93 11/13/23 09:36 36.5 C 72 20 111/73 95 11/13/23 07:43 69 11/13/23 05:30 71 12 112/75 98 11/13/23 05:00 82 15 116/86 97 11/13/23 04:00 81 15 125/77 98 11/13/23 03:30 75 15 104/80 98 11/13/23 03:00 73 13 116/74 97 11/13/23 02:30 76 15 111/79 98 O2 Del Method 11/13/23 13:34 Room Air 11/13/23 09:36 Room Air 11/13/23 07:43 11/13/23 05:30 11/13/23 05:00 11/13/23 04:00 11/13/23 03:30 11/13/23 03:00 11/13/23 02:30 Code Status & VTE Plan VTE Prophylaxis Plan VTE Prophylaxis will be ordered: Yes
--- NOTE | 2023-11-13 14:15 | Anesthesiology Consultation ---
Date of Service November 13, 2023 Assessment & Plan Consults Requested medical & cardiac Pulmonary History Surgery Operation Date: 11/13/23 19:15 Proposed Procedures p Esophagogastroduodenoscopy Dr Gaffney - Cari Flores MD Height/Weight Height: 5 ft 2 in Weight: 66.2 kg Allergies Allergy/AdvReac Type Severity Reaction Status Date / Time hydrocodone Allergy Mild ITCHING Verified 03/18/23 08:56 Medications Home Medications Medication Instructions Recorded Confirmed Last Taken ibuprofen 200 mg tablet (Advil) 400 mg PO QID PRN Pain 10/27/18 11/13/23 10/26/18 15:00 [id number]-zvcdneyn-plcu 8 mg-folic 2 tab PO HS 10/27/18 11/13/23 03/16/23 ac 400 mcg-vit K 10 mcg chew tablet (Centrum Chewables) hydroxyzine HCl 10 mg tablet 10 mg PO Q6H PRN Anxiety 03/10/23 11/13/23 03/17/23 09:30 pantoprazole 40 mg tablet,delayed 40 mg PO QAM 03/10/23 11/13/23 03/18/23 07:00 release Active Medications Generic Name Dose Route Start Last Admin Trade Name Freq PRN Reason Stop Dose Admin Hydromorphone HCl 0.5 mg 11/13/23 04:09 11/13/23 10:52 Hydromorphone Inj 0.5 Mg/0.5 Ml Syr IV 11/27/23 04:08 0.5 mg Q3H PRN Administration Pain Hydroxyzine HCl 10 mg 11/13/23 09:35 11/13/23 10:48 Hydroxyzine Hcl 10 Mg Tab PO 12/13/23 09:34 10 mg Q6H PRN Administration Anxiety Dextrose/Sodium Chloride 1,000 mls @ 100 mls/hr 11/13/23 09:35 11/13/23 13:00 D5w And Nss IV 12/13/23 09:34 0 mls/hr .Q10H BAN Infusion Pantoprazole Sodium 40 mg 11/13/23 10:00 11/13/23 10:48 Pantoprazole 40 Mg Tab PO 12/13/23 09:59 40 mg QAM BAN Administration NPO Date Last Intake of Fluids: 11/13/23 Time Last Intake of Fluids: 11:30 Date Last Intake of Solids: 11/12/23 Time Last Intake of Solids: 19:00 Past Medical History Medical History GERD (gastroesophageal reflux disease) Hyperlipidemia Endometriosis Anxiety Past Family History Family History Mother Breast cancer, Onset Age: 32 Renal failure Grandmother (Maternal) Breast cancer, Onset Age: 60 Other Coronary heart disease Hypertension No family history of adverse response to anesthesia Denies family history of Ovarian cancer Colorectal cancer Past Surgical History Surgical History H/O total hysterectomy H/O oophorectomy S/P laparoscopy excis uterine surg endometriotic tissue posterior S/P laparoscopy gynecologic laparoscopy with adhesiolysis H/O colonoscopy History of cryosurgery cervix H/O breast biopsy S/P appendectomy Social History Smoking Status: Current every day smoker tobacco type: cigarettes Smoking cigarettes per day: 7 Do You Dip or Chew Tobacco: No Hx Alcohol Use: Yes alcohol intake frequency: holidays/special occasions only Hx Substance Use: No substance use type: does not use Physical Exam Vital Signs Last Vital Signs Temp 36.6 C 11/13/23 13:34 Pulse 69 11/13/23 13:34 Resp 16 11/13/23 13:34 BP 137/72 11/13/23 13:34 Pulse Ox 93 11/13/23 13:34 O2 Del Method Room Air 11/13/23 13:34 Testing Laboratory Results 11/13/23 09:43 11/13/23 09:43 Urine Color Yellow 11/12/23 22:35 Urine Appearance Cloudy (Clear) A 11/12/23 22:35 Urine pH 6.0 (4.5-7.5) 11/12/23 22:35 Ur Specific Vida 1.010 (1.000-1.030) 11/12/23 22:35 Urine Protein Negative (Negative) 11/12/23 22:35 Urine Glucose (UA) Negative (Negative) 11/12/23 22:35 Urine Ketones Negative (Negative) 11/12/23 22:35 Urine Nitrite Negative (Negative) 11/12/23 22:35 Ur Leukocyte Esterase Negative (Negative) 11/12/23 22:35 Urine WBC (Auto) 1-5 /hpf (0-5) 11/12/23 22:35 Urine RBC (Auto) 0-4 /hpf (0-4) 11/12/23 22:35 U Hyaline Cast (Auto) 0 /lpf (0-5) 11/12/23 22:35 U Epithel Cells (Auto) 20-30 /lpf (0-5) H 11/12/23 22:35 Urine Bacteria (Auto) Negative (Negative) 11/12/23 22:35
--- NOTE | 2023-11-13 14:35 | GI REPORT ---
Patient Name: Krista Arenas Procedure Date: 11/13/2023 2:18 PM Date of : 1975 Admit Type: Inpatient Age: 48 Gender: Female Attending MD: Cari Flores MD, Procedure: Upper GI endoscopy Providers: aCri Flores MD Referring MD: Referred Self Indications: Abdominal pain Medicines: See the Anesthesia note for documentation of the administered medications Complications: No immediate complications. Estimated Blood Loss: Estimated blood loss: none. Procedure: Pre-Anesthesia Assessment: - ASA Grade Assessment: III - A patient with severe systemic disease. After obtaining informed consent, the endoscope was passed under direct vision. Throughout the procedure, the patient's blood pressure, pulse, and oxygen saturations were monitored continuously. The Scope was introduced through the mouth, and advanced to the second part of duodenum. The upper GI endoscopy was accomplished without difficulty. The patient tolerated the procedure well. Findings: There was a 8 mm submucosal mass at 30 cm. The GE junction was at 35 cm. There were a few antral erosions. The stomach was otherwise normal. There was mild fissuring in D2. The duodenum was otherwise normal. Biopsies taken from duodenum and from stomach. Recommendation: - Discharge patient to floor. Will arrange outpt EUS for eval of esophageal lesion. I suspect her pain is musculoskeletal -- would not pursue further w/u. PPI once daily x 2 weeks, minimize NSAID use, follow up pathology results. Please call with questions. Cari Flores M.D. Cari Flores MD 11/13/2023 2:34:40 PM This report has been signed electronically. Note Initiated On: 11/13/2023 2:18 PM Number of Addenda: 0 I attest to the content of the Intraoperative Record and orders documented therein, exceptions below {[id number]}
[2023-11-13] MEDS: PROPOFOL IV EMULSION 10 MG/ML 20 ML VIAL IV ONE ×2 (15:13→15:14)
[2023-11-13] MEDS: fentaNYL citrate PF 100 MCG/2 ML VIAL ONE (15:13)
[2023-11-13] MEDS: LIDOCAINE 2% 2 ML VIAL/AMP(20MG/ML) INFIL ONE (15:14)
--- NOTE | 2023-11-13 15:21 | Anesthesiology Progress Note ---
Date of Service November 13, 2023 Anesthesia Post Procedure Vital Signs Vital Signs: Temp Pulse Pulse Resp BP BP Pulse Ox 11/13/23 15:04 77 14 95/68 L 95 11/13/23 14:49 86 14 102/56 L 95 11/13/23 14:34 63 12 108/51 L 93 11/13/23 13:34 36.6 C 69 16 137/72 93 11/13/23 09:36 36.5 C 72 20 111/73 95 11/13/23 07:43 69 11/13/23 05:30 71 12 112/75 98 11/13/23 05:00 82 15 116/86 97 11/13/23 04:00 81 15 125/77 98 11/13/23 03:30 75 15 104/80 98 11/13/23 03:00 73 13 116/74 97 11/13/23 02:30 76 15 111/79 98 11/13/23 02:00 93 H 27 H 104/65 96 11/13/23 01:30 81 14 121/80 96 11/13/23 01:00 118/71 11/13/23 01:00 80 24 118/71 94 11/13/23 00:56 122/61 96 11/13/23 00:00 71 18 99 11/12/23 23:34 81 11/12/23 23:33 78 19 93 11/12/23 22:15 36.2 C L 105 H 18 143/66 H 96 O2 Del Method O2 Flow Rate 11/13/23 15:04 Room Air 11/13/23 14:49 Room Air 11/13/23 14:34 Oxymask 15 11/13/23 13:34 Room Air 11/13/23 09:36 Room Air 11/13/23 07:43 11/13/23 05:30 11/13/23 05:00 11/13/23 04:00 11/13/23 03:30 11/13/23 03:00 11/13/23 02:30 11/13/23 02:00 11/13/23 01:30 11/13/23 01:00 11/13/23 01:00 11/13/23 00:56 11/13/23 00:00 11/12/23 23:34 11/12/23 23:33 03/27/24 22:15 Room Air Pain Intensity Right Flank: Pain Intensity: 10 Transfer of Care Handoff Completed per policy Notes Mental Status: alert / awake / arousable and participated in evaluation Nausea / Vomiting: adequately controlled Pain: adequately controlled Airway Patency, RR, SpO2: stable & adequate BP & HR: stable & adequate Hydration State: stable & adequate Anesthetic Complications: no major complications apparent and Pt Satisfied with anesthetic care
[2023-11-13] MEDS: GADOXETATE DISODIUM IV ONE (22:05)
[2023-11-13] MEDS: ONDANSETRON INJ 2 MG/ML 2 ML VIAL IV PRN (22:31)
--- NOTE | 2023-11-14 00:26 | Magnetic Resonance Report ---
Exam(s): MRI ABDOMEN W/WO Contrast IV Amt: 10CC EOVIST EXAM: MR Abdomen Without and With Intravenous Contrast CLINICAL HISTORY: Reason for exam: liver lesions on US - please do liver protocol mri. TECHNIQUE: Multiplanar magnetic resonance images of the abdomen without and with intravenous contrast. CONTRAST: Patient received 10CC EOVIST of IV contrast COMPARISON: CT dated the 11/12/2023. FINDINGS: Lung bases: Unremarkable. No mass. No consolidation. Liver: Second lesion within the left liver lobe anteriorly measuring approximately 2.2 cm in diameter with early avid contrast enhancement and progressive washout, barely visualized on delayed images and therefore favoring liver hemangioma. There is a T2 hyperintensity with no enhancement within the anterior aspect of the left liver lobe measuring 9 mm consistent with a liver cyst. Gallbladder and bile ducts: Unremarkable. No calcified stones. No ductal dilation. Pancreas: Unremarkable. No ductal dilation. No mass. Spleen: Unremarkable. No splenomegaly. Adrenals: Unremarkable. No mass. Kidneys and ureters: Unremarkable. No hydronephrosis. No solid mass. Stomach and bowel: Unremarkable. No obstruction. Intraperitoneal space: Unremarkable. No significant fluid collection. Soft tissues: Unremarkable. Vasculature: Unremarkable. No abdominal aortic aneurysm. Lymph nodes: Unremarkable. No enlarged lymph nodes. IMPRESSION: Left anterior liver lobe lesion most compatible with hemangioma measuring 2.2 cm. Manual abdominal viscera are unremarkable. Electronically signed by: Mary Salter MD 11/14/23 00:25 AM
[2023-11-14 06:47] LABS: Hematocrit (blood only) 36.3 % (37.0-47.0); Hemoglobin 12.4 g/dl (12.0-16.0); Mean Corpuscular Hemoglobin 29.3 pg (25.0-34.0); Mean Corpuscular Hgb Conc 34.2 g/dL (32.0-36.0); Mean Corpuscular Volume 85.8 fL (80.0-100.0); Mean Platelet Volume 11.9 fL (9.4-12.4); Platelet Count 202 K/uL (130-400); RDW Coefficient of Variation 12.3 % (11.5-14.5); RDW Standard Deviation 38.6 fL (36.4-46.3); Red Blood Count 4.23 M/uL (4.20-5.40)
[2023-11-14 07:12] LABS: Albumin Globulin Ratio 1.6 (0.9-2); Albumin Level 3.6 gm/dl (3.4-5.0); BUN Creatinine Ratio 12.2 (10-20); Bilirubin,Total 0.6 mg/dl (0.2-1.0); Calcium 8.6 mg/dl (8.6-10.3); Creatinine Clr Calc Pharmacy 76.5 ml/min; Est GFR (African American) 99.5 ml/min; Est GFR (Non-African American) 85.8 ml/min; Globulin 2.2 gm/dl (2.5-4.0); Potassium 3.8 mmol/L (3.5-5.1); Total Protein 5.8 gm/dl (6.0-8.3)
[2023-11-14] MEDS: KETOROLAC TROMETHAMINE 15 MG/ML VIAL IV PRN (09:16)
[2023-11-14] MEDS: ACETAMINOPHEN 500 MG TAB PO SCH (12:41)
--- NOTE | 2023-11-14 13:51 | Communication Note ---
Date of Service: November 14, 2023 Was made aware pt continues in pain and that MRI addendum was added. Info below reviewed with primary hospitalist service: There is a 2.4 cm T2 hyperintense, T1 hypointense, and homogeneously hypervascular lesion in hepatic segment Seth. This is best seen on axial postcontrast image #33. The lesion becomes nearly isointense to liver on the po rtal venous phase imaging and does not retain Eovist. No intralesional fat is identified on the opposed phase images. This does not demonstrate typically benign enhancement kinetics, and is not compatible with a hemangioma. This is unchanged from the 11/12/[address] scan, but is clearly new from a 2009 CT scan. A hepatic adenoma is considered most likely. A hepatocellular carcinoma is considered less likely given the lack of underlying hepatocellular disease but could potentially appear similar. A metastatic lesion is also not excluded if there is a cancer history. No additional enhancing hepatic lesion is seen. Correlate with serum AFP levels. A follow-up examination in 3-6 months is recommended for evaluation. Recommend AFP (will order), f/u liver MRI in 3m (order [facility] in [facility]) and hepatology referral (will place order).These are not likely to cause pain and would be a different character of pain - would expect a low grade constant pressure/ache only if larger and on the periphery of the liver. Her pain is much more characteristic of musculoskeletal pain. Also reviewed EGD findings of 8mm esophageal submucosal lesion. Likely benign and non urgent OP EUS is recommended. This is not expected to cause pain.
--- NOTE | 2023-11-14 16:07 | Hospitalist Progress Note ---
Date of Service November 14, 2023 Assessment & Plan (1) RUQ abdominal pain: (2) Lesion of liver: Plan This is a 48-year-old female with past med significant for allergic rhinitis, irritable bowel syndrome, history of headaches, general anxiety disorder, tobacco use disorder, depression presents with right-sided abdominal pain going on for 3-4 days. RUQ pain Gallbladder ultrasound shows right hepatic lesions 2.4 x 2.[address] abdomen pelvis without contrast shows right hepatic lesion 9 x 7 mm and diverticulosis EGD with esophageal submucosal lesion, antral gastritis likely related to NSAID use Liver MRI initially read with lesion consistent with hemangioma but addendum added today by radiologist felt lesion more consistent with hepatic adenoma with hepatocellular carcinoma considered less likely GI recommending AFP, f/u liver MRI in 3 mo, hepatology referral However, they do not feel lesion is causing pain and that pain is much more characteristic of musculoskeletal pain Transitioned from IV dilaudid to scheduled Tylenol, oxycodone for breakthrough pain and ice Using nsaids sparingly given gastritis noted on EGD Continue Protonix one daily x 2 weeks Outpatient EUS for esophageal submucosal lesion DVT Ppx: SCDs for now, encourage ambulation Patient seen in collaboration with Dr. Zamora. Please see addendum. I spent a total of 60 minutes coordinating, documenting, and providing care for this patient excluding time spent in the performance of separately billed services. Admission and Anticipated Discharge Date Admission Date: November 13, 2023 Supervising Physician Co-Signing Physician Notes Pt seen and examined by me, care coordinated with Ivan Barnes PA-C, pls refer to her note above for further detail. Pt admitted with RUQ abd. pain, found to have liver lesion and GI was consulted. She underwent EGD yesterday and liver MRI. Currently pain is improved and she is much more comfortable. She is currently on clear liquid diet but plans to advance this evening. I discussed in detail w/ GI today and they recommend follow up w/ GI/ liver clinic, will need repeat MRI to follow up on liver lesion. They do not believe this would be causing pt's pain. And likely pain is MSK. Currently pt is awake, alert, oriented, answers appropriately. lung sounds clear, heart sounds regular. Abdomen is soft, + bowel sounds, tender to palp. at RUQ (but improved). Cont. pain management and closely monitor, if cont. to improve and tolerates diet, likely DC tmrw. MD Noah Subjective Patient seen and examined in 377 bed 2 in follow-up for right upper quadrant abdominal pain. Pain has not improved since yesterday despite IV pain medication. Talked with GI and underwent EGD and liver MRI as discussed below. Denies any other changes overnight. No bowel movement since arrival. Requesting diet be advanced, more hungry today. No fever, chills, lightheadedness, chest pain, shortness of breath, nausea, vomiting, dysuria, diarrhea. Review of Systems Review of Systems: At least ten systems reviewed and negative except as noted in the HPI. Physical Exam Physical Exam: Gen: WD/WN, NAD, laying in bed, A&Ox3 HEENT: Normocephalic, atraumatic, conjunctivae moist, sclerae anicteric, mucous membranes moist Lung: Clear to Auscultation bilaterally, no wheezes/rales/rhonchi Heart: Regular rate, regular rhythm, no murmurs, rubs, or gallops Abdomen: Soft, TTP RUQ, ND +BS x 4 Extremities: no edema Skin: Warm, no rash Results & Data Results & Data Vital Signs (Past 12 Hours) Vital Signs Temp Pulse Resp BP Pulse Ox O2 Del Method 11/14/23 16:04 36.9 C 70 15 102/67 95 Room Air 11/14/23 07:02 37.0 C 81 18 105/68 98 Room Air Laboratory Results Short CBC 11/14/23 Range/Units 06:03 WBC 7.50 (4.8-10.8) K/ul Hgb 12.4 (12.0-16.0) g/dl Hct 36.3 L (37.0-47.0) % Plt Count 202 (130-400) K/uL BMP 11/14/23 06:03 Sodium 140 Potassium 3.8 Chloride 107 Carbon Dioxide 29 BUN 10 Creatinine 0.82 Glucose 102 H Calcium 8.6 Liver Function 11/14/23 Range/Units 06:03 Total Bilirubin 0.6 (0.2-1.0) mg/dl AST 15 (13-39) U/L ALT 11 (7-52) U/L Alkaline Phosphatase 54 (34-104) U/L Albumin 3.6 (3.4-5.0) gm/dl Diagnostic Findings Abdomen/Pelvis CT 11/12/23 22:27 Exam(s): CT ABDOMEN + PELVIS Without Contrast EXAM: CT Abdomen and Pelvis Without Intravenous Contrast CLINICAL HISTORY: Reason for exam: right flank pain. TECHNIQUE: Axial computed tomography images of the abdomen and pelvis without intravenous contrast. CTDI is 17.5 mGy and DLP is 804.42 mGy-cm. Automated exposure control was utilized for the study. A dose lowering technique was utilized adhering to the principles of ALARA. COMPARISON: No relevant prior studies available. FINDINGS: Lung bases: Unremarkable. No mass. No consolidation. ABDOMEN: Liver: Hepatic low-attenuation lesion in the right hepatic lobe measures 9 x 7 mm, too small to characterize. Gallbladder and bile ducts: Contracted gallbladder, which is limited in evaluation. No calcified stones. No ductal dilation. Pancreas: Unremarkable. No ductal dilation. Spleen: Unremarkable. No splenomegaly. Adrenals: Unremarkable. No mass. Kidneys and ureters: No hydronephrosis or nephrolithiasis. No obstructive uropathy. Note, there are phleboliths along the course of the right ureter. No hydronephrosis or nephrolithiasis. Stomach and bowel: Diverticulosis, without acute diverticulitis. No bowel obstruction. No free air. PELVIS: Appendix: No findings to suggest acute appendicitis. Bladder: Unremarkable. No stones. Reproductive: Unremarkable as visualized. ABDOMEN and PELVIS: Intraperitoneal space: See above. Bones/joints: No acute fracture. No dislocation. Soft tissues: Unremarkable. Vasculature: Unremarkable. No abdominal aortic aneurysm. Lymph nodes: Unremarkable. No enlarged lymph nodes. IMPRESSION: 1. No hydronephrosis or nephrolithiasis. No obstructive uropathy. Note, there are phleboliths along the course of the right ureter. No right-sided perinephric stranding. 2. Diverticulosis, without acute diverticulitis. No bowel obstruction. No free air. Electronically signed by: Enoc Aguilera MD 11/12/23 23:20 PM Gallbladder Ultrasound 11/12/23 22:27 Exam(s): US GALLBLADDER EXAM: US Abdomen Limited, Gallbladder CLINICAL HISTORY: Reason for exam: ruq pain. TECHNIQUE: Real-time ultrasound of the right upper quadrant with image documentation. COMPARISON: No relevant prior studies available. FINDINGS: Liver: Indeterminate right hepatic lesion measures 2.4 x 2.4 cm in dimension blood flow. Recommend nonemergent contrast-enhanced MRI correlation (hepatic mass protocol). Small hepatic cystic lesion measures 6 x 6 mm. Gallbladder: Mild wall thickening of the gallbladder. No gallstones. Common bile duct: The common bile duct measures 5 mm. No stones. No dilation. IMPRESSION: Indeterminate right hepatic lesion measures 2.4 x 2.4 cm in dimension blood flow. Recommend nonemergent contrast-enhanced MRI correlation (hepatic mass protocol). Electronically signed by: Enoc Aguilera MD 11/13/23 01:19 AM Abdomen MRI 11/13/23 12:31 Exam(s): MRI ABDOMEN W/WO Contrast IV Amt: 10CC EOVIST EXAM: MR Abdomen Without and With Intravenous Contrast CLINICAL HISTORY: Reason for exam: liver lesions on US - please do liver protocol mri. TECHNIQUE: Multiplanar magnetic resonance images of the abdomen without and with intravenous contrast. CONTRAST: Patient received 10CC EOVIST of IV contrast COMPARISON: CT dated the 11/12/2023. FINDINGS: Lung bases: Unremarkable. No mass. No consolidation. Liver: Second lesion within the left liver lobe anteriorly measuring approximately 2.2 cm in diameter with early avid contrast enhancement and progressive washout, barely visualized on delayed images and therefore favoring liver hemangioma. There is a T2 hyperintensity with no enhancement within the anterior aspect of the left liver lobe measuring 9 mm consistent with a liver cyst. Gallbladder and bile ducts: Unremarkable. No calcified stones. No ductal dilation. Pancreas: Unremarkable. No ductal dilation. No mass. Spleen: Unremarkable. No splenomegaly. Adrenals: Unremarkable. No mass. Kidneys and ureters: Unremarkable. No hydronephrosis. No solid mass. Stomach and bowel: Unremarkable. No obstruction. Intraperitoneal space: Unremarkable. No significant fluid collection. Soft tissues: Unremarkable. Vasculature: Unremarkable. No abdominal aortic aneurysm. Lymph nodes: Unremarkable. No enlarged lymph nodes. IMPRESSION: Left anterior liver lobe lesion most compatible with hemangioma measuring 2.2 cm. Manual abdominal viscera are unremarkable. Electronically signed by: Mary Salter MD 11/14/23 00:25 AM
[2023-11-14] MEDS: oxyCODONE HCL IR 5 MG TAB (IMMEDIATE RELEASE) PO PRN (20:55)
[2023-11-14] MEDS: HYDROmorphone INJ 0.5 MG/0.5 ML SYR IV STA (23:40)
[2023-11-15 06:26] LABS: Hematocrit (blood only) 37.7 % (37.0-47.0); Hemoglobin 13.1 g/dl (12.0-16.0); Mean Corpuscular Hemoglobin 29.6 pg (25.0-34.0); Mean Corpuscular Hgb Conc 34.7 g/dL (32.0-36.0); Mean Corpuscular Volume 85.1 fL (80.0-100.0); Mean Platelet Volume 11.8 fL (9.4-12.4); Platelet Count 206 K/uL (130-400); RDW Coefficient of Variation 12.1 % (11.5-14.5); RDW Standard Deviation 37.9 fL (36.4-46.3); Red Blood Count 4.43 M/uL (4.20-5.40); White Blood Count 6.01 K/ul (4.8-10.8)
[2023-11-15 07:30] LABS: Albumin Level 3.6 gm/dl (3.4-5.0); Magnesium 2.1 mg/dl (1.7-2.4); Potassium 4.1 mmol/L (3.5-5.1)
[2023-11-15 07:36] LABS: Creatinine Clr Calc Pharmacy 66.7 ml/min; Est GFR (African American) 84.3 ml/min; Est GFR (Non-African American) 72.8 ml/min
[2023-11-15 08:01] LABS: Bilirubin,Total 0.4 mg/dl (0.2-1.0)
[2023-11-15 08:06] LABS: Albumin Globulin Ratio 1.5 (0.9-2); BUN Creatinine Ratio 10.6 (10-20); Globulin 2.4 gm/dl (2.5-4.0)
[2023-11-15] MEDS: POLYETHYLENE (MIRALAX) 17 GM PACK PO ONE (09:07)
[2023-11-15] MEDS: DOCUSATE SODIUM 100 MG CAP PO ONE (09:07)
--- NOTE | 2023-11-15 12:50 | Discharge Summary ---
Date of Service November 15, 2023 Admission HPI Per Admitting Provider 48-year-old female with past med significant for allergic rhinitis, irritable bowel syndrome, history of headaches, general anxiety disorder, tobacco use disorder, depression presents with right-sided abdominal pain going on for 3 to 4 days. The pain was getting severe so she came to the ER. Has Some nausea. Denies any diarrhea or constipation. No blood in the stools ,normal micturition. No fevers. No chest pain or shortness of breath. No headache. No blurred visions ,no runny nose or sore throat. Hemodynamics are okay. Past medical history. As mentioned above Past surgical history. Bilateral breast lumpectomies. Ligation oviducts. Appendectomy. Total abdominal hysterectomy with removal of tubes Social history. Smokes 0.2 packs a day for last 17 years. Alcohol rarely. No drug use. Family history. Mother had breast cancer. Admission Exam Per Admitting Provider General- Not in distress Head- atraumatic Eyes- PERRL. ENT- oropharynx clear Neck- supple, no JVD. Lungs- clear to auscultation no wheezing or crackles. Heart- regular rhythm; no murmur, no gallop. Abdomen- normal bowel sounds, soft, tenderness in RUQ and guarding present, No distension seen. Extremities- no pretibial edema, no erythema Neuro- alert, oriented PERRL, no facial palsy; no dysarthria; moves extremities. Principal Diagnosis RUQ abd. pain, likely MSK Liver lesion Discharge Exam Gen: WD/WN, F in NAD HEENT: Normocephalic, atraumatic, conjunctivae moist, sclerae anicteric, mucous membranes moist Lung: Clear to Auscultation bilaterally, no wheezes/rales/rhonchi Heart: Regular rate, regular rhythm, no murmurs, rubs, or gallops Abdomen: Soft, TTP RUQ (much improved), ND +BS x 4 Extremities: no edema, moves extremities Skin: Warm, dry Discharge Data Allergies Allergy/AdvReac Type Severity Reaction Status Date / Time hydrocodone Allergy Mild ITCHING Verified 03/18/23 08:56 Consultations 11/13/23 01:23 ED Decision to Admit Stat 11/13/23 09:35 Consult Gastroenterology Routine Procedures Performed Operation Date: 11/13/23 19:15 Actual Procedures p EGD Biopsy Cytology - Cari Flores MD Ordered Studies 11/12/23 22:27 CT abd pelvis wo con Stat ADDENDUM ADDENDUM: Exam(s): CT ABDOMEN + PELVIS Without Contrast Area of low attenuation in the right hepatic lobe anteriorly measuring approximately 2.1 x 2.0 cm. Recommend correlation with concomitant ultrasound. Electronically signed by: Enoc Aguilera MD 11/13/23 01:15 AM ADDENDUM END Exam(s): CT ABDOMEN + PELVIS Without Contrast EXAM: CT Abdomen and Pelvis Without Intravenous Contrast CLINICAL HISTORY: Reason for exam: right flank pain. TECHNIQUE: Axial computed tomography images of the abdomen and pelvis without intravenous contrast. CTDI is 17.5 mGy and DLP is 804.42 mGy-cm. Automated exposure control was utilized for the study. A dose lowering technique was utilized adhering to the principles of ALARA. COMPARISON: No relevant prior studies available. FINDINGS: Lung bases: Unremarkable. No mass. No consolidation. ABDOMEN: Liver: Hepatic low-attenuation lesion in the right hepatic lobe measures 9 x 7 mm, too small to characterize. Gallbladder and bile ducts: Contracted gallbladder, which is limited in evaluation. No calcified stones. No ductal dilation. Pancreas: Unremarkable. No ductal dilation. Spleen: Unremarkable. No splenomegaly. Adrenals: Unremarkable. No mass. Kidneys and ureters: No hydronephrosis or nephrolithiasis. No obstructive uropathy. Note, there are phleboliths along the course of the right ureter. No hydronephrosis or nephrolithiasis. Stomach and bowel: Diverticulosis, without acute diverticulitis. No bowel obstruction. No free air. PELVIS: Appendix: No findings to suggest acute appendicitis. Bladder: Unremarkable. No stones. Reproductive: Unremarkable as visualized. ABDOMEN and PELVIS: Intraperitoneal space: See above. Bones/joints: No acute fracture. No dislocation. Soft tissues: Unremarkable. Vasculature: Unremarkable. No abdominal aortic aneurysm. Lymph nodes: Unremarkable. No enlarged lymph nodes. IMPRESSION: 1. No hydronephrosis or nephrolithiasis. No obstructive uropathy. Note, there are phleboliths along the course of the right ureter. No right-sided perinephric stranding. 2. Diverticulosis, without acute diverticulitis. No bowel obstruction. No free air. Electronically signed by: Enoc Aguilera MD 11/12/23 23:20 PM Dictated: 11/12/232319 Transcribed: 11/12/232319 US gallbladder Stat ADDENDUM ADDENDUM: Exam(s): US GALLBLADDER Small focus of Comet tail artifact in the gallbladder fundus, which may indicate adenomyomatosis. Negative Young sign. Electronically signed by: Enoc Aguilera MD 11/13/23 02:27 AM ADDENDUM END Exam(s): US GALLBLADDER EXAM: US Abdomen Limited, Gallbladder CLINICAL HISTORY: Reason for exam: ruq pain. TECHNIQUE: Real-time ultrasound of the right upper quadrant with image documentation. COMPARISON: No relevant prior studies available. FINDINGS: Liver: Indeterminate right hepatic lesion measures 2.4 x 2.4 cm in dimension blood flow. Recommend nonemergent contrast-enhanced MRI correlation (hepatic mass protocol). Small hepatic cystic lesion measures 6 x 6 mm. Gallbladder: Mild wall thickening of the gallbladder. No gallstones. Common bile duct: The common bile duct measures 5 mm. No stones. No dilation. IMPRESSION: Indeterminate right hepatic lesion measures 2.4 x 2.4 cm in dimension blood flow. Recommend nonemergent contrast-enhanced MRI correlation (hepatic mass protocol). Electronically signed by: Enoc Aguilera MD 11/13/23 01:19 AM Dictated: 11/13/23118 Transcribed: 11/13/2311811/13/23 12:31 MRI Abdomen [MR abdomen wo/w con] Routine ADDENDUM ADDENDUM: There is a 2.4 cm T2 hyperintense, T1 hypointense, and homogeneously hypervascular lesion in hepatic segment Seth. This is best seen on axial postcontrast image #33. The lesion becomes nearly isointense to liver on the portal venous phase imaging and does not retain Eovist. No intralesional fat is identified on the opposed phase images. This does not demonstrate typically benign enhancement kinetics, and is not compatible with a hemangioma. This is unchanged from the 11/12/[address] scan, but is clearly new from a 2008 CT scan. A hepatic adenoma is considered most likely. A hepatocellular carcinoma is considered less likely given the lack of underlying hepatocellular disease but could potentially appear similar. A metastatic lesion is also not excluded if there is a cancer history. No additional enhancing hepatic lesion is seen. Correlate with serum AFP levels. A follow-up examination in 3-6 months is recommended for evaluation. Electronically signed by: Jared Molina M.D. 11/14/2023 12:55 PM ADDENDUM END Exam(s): MRI ABDOMEN W/WO Contrast IV Amt: 10CC EOVIST EXAM: MR Abdomen Without and With Intravenous Contrast CLINICAL HISTORY: Reason for exam: liver lesions on US - please do liver protocol mri. TECHNIQUE: Multiplanar magnetic resonance images of the abdomen without and with intravenous contrast. CONTRAST: Patient received 10CC EOVIST of IV contrast COMPARISON: CT dated the 11/12/2023. FINDINGS: Lung bases: Unremarkable. No mass. No consolidation. Liver: Second lesion within the left liver lobe anteriorly measuring approximately 2.2 cm in diameter with early avid contrast enhancement and progressive washout, barely visualized on delayed images and therefore favoring liver hemangioma. There is a T2 hyperintensity with no enhancement within the anterior aspect of the left liver lobe measuring 9 mm consistent with a liver cyst. Gallbladder and bile ducts: Unremarkable. No calcified stones. No ductal dilation. Pancreas: Unremarkable. No ductal dilation. No mass. Spleen: Unremarkable. No splenomegaly. Adrenals: Unremarkable. No mass. Kidneys and ureters: Unremarkable. No hydronephrosis. No solid mass. Stomach and bowel: Unremarkable. No obstruction. Intraperitoneal space: Unremarkable. No significant fluid collection. Soft tissues: Unremarkable. Vasculature: Unremarkable. No abdominal aortic aneurysm. Lymph nodes: Unremarkable. No enlarged lymph nodes. IMPRESSION: Left anterior liver lobe lesion most compatible with hemangioma measuring 2.2 cm. Manual abdominal viscera are unremarkable. Electronically signed by: Mary Salter MD 11/14/23 00:25 AM Dictated: 11/14/2324 Transcribed: 11/14/2324 Hospital Course (1) RUQ abdominal pain: (2) Lesion of liver: Plan This is a 48-year-old female with past med significant for allergic rhinitis, irritable bowel syndrome, history of headaches, general anxiety disorder, tobacco use disorder, depression presents with right-sided abdominal pain going on for 3-4 days. RUQ pain Gallbladder ultrasound shows right hepatic lesions 2.4 x 2.[address] abdomen pelvis without contrast shows right hepatic lesion 9 x 7 mm and diverticulosis EGD with esophageal submucosal lesion, antral gastritis likely related to NSAID use Liver MRI initially read with lesion consistent with hemangioma but addendum added by radiologist felt lesion more consistent with hepatic adenoma with hepatocellular carcinoma considered less likely GI recommending AFP, f/u liver MRI in 3 mo, hepatology referral However, GI do not feel lesion is causing pain and that pain is much more characteristic of musculoskeletal pain Transitioned from IV dilaudid to scheduled Tylenol, oxycodone for breakthrough pain and ice Using nsaids sparingly given gastritis noted on EGD Continue Protonix once daily x 2 weeks Outpatient EUS for esophageal submucosal lesion Total Time Total Time Spent Total Time Spent (In Minutes): 40 Discharge Plan Discharge Items Patient Disposition: Home - Self-Care Reason For Visit: RIGHT SIDED ABDOMINAL PAIN, HEPATIC LESIONS Discharge Diagnosis: RUQ abd. pain, likely MSK Liver lesion Condition on Discharge: Good Activity: Per Instructions section Non-emergency contact: Primary Care Provider and Manufacturing Plant Controller Call non-emergency contact if: you have any medication questions and your symptoms worsen Follow-up/Referrals: Anil Varghese DO [Outside Practitioners] - (Date & Time 11/20/2023 9:00 AM Provider Anil Varghese DO Department [facility] ) Diet: Regular Addtl Attending Provider Instructions: Follow up with primary care doctor within 1 week. The appointment was scheduled for you for 11/20/2023. Follow up with gastroenterology - you will also need follow up MRI in 3 months , which has been ordered for you. Blood work (AFP) was obtained - GI will follow up on results and will inform you of the results of the test. For pain, use lidocaine patch, and Tylenol 1,000 mg three times a day. For more severe pain, take oxycodone as needed as prescribed. Recommend no strenuous activity until you start to feel better, as this can exacerbate your pain. Pending Studies at Discharge: Yes Studies:: AFP level Stand-Alone Forms: My [facility], Work/School Release, Smoking Cessation Medications and DC Order Prescriptions: New oxycodone 5 mg tablet 5 mg PO Q6H PRN (Reason: pain) Qty: 10 0RF Continued ibuprofen [Advil] 200 mg Tablet 400 mg PO QID PRN (Reason: Pain) Centrum Chewables 8 mg-400 mcg- 10 mcg Tablet,Chewable 2 tab PO HS hydroxyzine HCl 10 mg Tablet 10 mg PO Q6H PRN (Reason: Anxiety) pantoprazole 40 mg Tablet,Delayed Release (Dr/Ec) 40 mg PO QAM Qty: 30 0RF Discharge Orders: Discharge Order (Routine); Ordered 11/15/23 Ordered By: Vahid Zamora Admission Data Admit Date/Time: 11/13/23 04:43 Attending Provider: Vahid Zamora Admit Provider: Dave Herrera Primary Care Provider: PCP,NO Other Providers: Cari Flores; Dave Herrera Other Interventions: Discharge Summary Assessment (RN) Last Done: 11/13/23 15:04
[2023-11-15] MEDS: LIDOCAINE 5% 1 PATCH TD STA (14:06)
== END 2023-11-15 14:27 | disposition home or self-care (01) | DRG 556 ==
LOC: ED 22:11 → 3N 11-13 04:43